=== PATIENT | female | born 1955 | race Caucasian/White ===

== ENCOUNTER 2016-11-16 11:27 | Inpatient (IN) | payer MEDICARE ==
[~2016-11-16] VITALS: Ht 160 cm; Wt 53.3 kg
[~2016-11-16 11:27] MED LIST: ASPI-535 PO; BACL20TA PO; BUPR-34 PO; ENAL1TAB31 PO; ESTR1TAB23 PO; FENT100D2; FLUO20CA38 PO; LEVE-5 PO; LYRI25 PO; METO50TA16 PO; TRAZ50TA18 PO; XOP15INH INH
[2016-11-16] MEDS ORDERED: BACL20TA PO (12:17)
[2016-11-16] MEDS ORDERED: TRAZ150T65 PO (12:18)
[2016-11-16] MEDS ORDERED: CEPH500C PO (12:19)
[2016-11-16] MEDS ORDERED: MAXZ25 PO (12:21)
[2016-11-16] MEDS ORDERED: CLON-379 PO (12:22)
[2016-11-16] MEDS ORDERED: ASPIRIN 325 MG TAB PO STA (12:26)
[2016-11-16] MEDS ORDERED: SOD CHLORIDE 0.9% 1,000 ML IV STA (12:26)
--- NOTE | 2016-11-16 12:35 | ERA ---
ER Documentation Chief Complaint Date/Time DATE: 11/16/16 TIME: 12:30 Chief Complaint ABD PAIN , PAIN INF PUMP NOT WORKING , SOB , TOOTH PAIN HPI This is 61-year-old female with a history of fibromyalgia, seizures and syringomyelia. She has a implanted pain pump that stopped working 4 days ago. The patient says she was in her primary care doctor's office Dr. Hicks,, 45 minutes ago, when she began getting disoriented and confused and using the incorrect words and she was speaking. She also stated her right arm and leg went numb, but currently is much improved and only her hand and foot are slightly tingly. No weakness. No slurred speech no seizure. Her caregiver is here at the bedside and states that the patient's mental status has been gradually declining over the past couple of days. She states she has noticed that she has been using inappropriate words in place of the correct words. Patient was sent here from the office. She is currently has a tooth infection she is receiving antibiotics for in order to clear this up first before they manipulate the pain pump ROS All systems reviewed and are negative except as per history of present illness. Medications Home Meds Reported Medications Clonidine Hcl* (Clonidine Hcl*) 0.1 Mg Tab, 0.1 MG PO Q4H Y for ELEVATED BLOOD PRESSURE, TAB 11/16/16 Triamterene/Hctz* (Maxzide (37.5-25)*) 1 Each Tablet, 1 EACH PO DAILY, #30 TAB 11/16/16 Cephalexin* (Cephalexin*) 500 Mg Capsule, 500 MG PO Q6, #28 CAP STARTED 11-13-16 FOR 8 DAYS 11/16/16 Trazodone Hcl* (Trazodone Hcl*) 150 Mg Tablet, 150 MG PO QHS, #30 TAB 11/16/16 Baclofen* (Baclofen*) 20 Mg Tablet, 100 MG PO QID, TAB 11/16/16 Fluoxetine Hcl* (Prozac*) 20 Mg Capsule, 20 MG PO BID, CAP 10/29/14 Levalbuterol* (Xopenex* HFA) 15 Gm Inha, 2 PUFFS INH QID Y for WHEEZING AND SOB , EA 10/29/14 Aspirin Ec (Aspir 81) 81 Mg Tablet.dr, 81 MG PO DAILY, TAB 10/29/14 Levetiracetam* (Keppra*) 500 Mg Tablet, 500 MG PO BID, TAB 10/29/14 Metoprolol Succinate* (Toprol XL*) 50 Mg Tab.er.24h, 50 MG PO DAILY, TAB 10/29/14 Bupropion Hcl* (Wellbutrin SR*) 150 Mg Tablet.sa, 150 MG PO BID 09/19/12 Estradiol* (Estrace*) 1 Mg Tablet, 1 MG PO DAILY 09/19/12 Pregabalin* (Lyrica*) 25 Mg Capsule, 25 MG PO TID 09/19/12 Discontinued Reported Medications Fentanyl Citrate/Pf (Fentanyl 0.05 Mg/Ml Syringe) 50 Mcg/Ml Disp.syrin, 30 MG .ROUTE 02/08/16 Enalapril-Hydrochlorothiazide (Vaseretic) 10-25 Mg Tablet, 1 TAB PO DAILY, TAB 10/29/14 Baclofen* (Baclofen*) 20 Mg Tablet, 20 MG PO QID 09/19/12 Discontinued Scripts Trazodone Hcl* (Trazodone Hcl*) 50 Mg Tablet, 25 MG PO HS Y for INSOMNIA, #1 TAB Prov:COLT MUNOZ MD 02/20/15 Allergies Allergies: Coded Allergies: Penicillins (Verified Allergy, Unknown, 11/16/16) rashes adhesive tape (Verified Allergy, Unknown, 11/16/16) rashes iodine (Verified Allergy, Unknown, 11/16/16) latex (Verified Allergy, Unknown, 11/16/16) rashes PMhx/Soc History of Surgery: Yes (hysterectomy, C5-C6 fusion, implantation spinal infusion pump) Anesthesia Reaction: No Hx Neurological Disorder: Yes (Seizures, fibromyalgia, syriangomyelia) Hx Respiratory Disorders: Yes (COPD) Hx Cardiac Disorders: No Hx Psychiatric Problems: Yes (depression) Hx Miscellaneous Medical Probl: Yes (HTN) Hx Alcohol Use: No Hx Substance Use: No Hx Tobacco Use: Yes Smoking Status: Current every day smoker FmHx Family History: No coronary disease Physical Exam Vitals Vital Signs Date Time Temp Pulse Resp B/P Pulse Ox O2 Delivery O2 Flow Rate FiO2 11/16/16 13:53 98.2 65 16 141/84 99 Nasal Cannula 3.0 11/16/16 13:00 Nasal Cannula 3 11/16/16 11:41 98.2 89 18 146/76 99 Physical Exam Const: Well-developed, well-nourished Head: Atraumatic, normocephalic Eyes: Normal Conjunctiva, PERRLA, EOMI, normal sclera, no nystagmus ENT: Normal External Ears, Nose and Mouth, moist mucus membranes. Neck: Full range of motion. No meningismus, no lymphadenopathy. Resp: Clear to auscultation bilaterally, no wheezing, rhonchi, rales Cardio: Regular rate and rhythm, no murmurs, S1 S2 present Abd: Soft, non tender x 4, non distended. Normal bowel sounds, no guarding or rebound, no pulsitile abdominal masses or bruits Skin: No petechiae or rashes, no ecchymosis , no maculopapular rash Back: No midline or flank tenderness Ext: No cyanosis, or edema, FROM x 4, normal inspection, neurovascularly intact x 4 Neur: Awake and alert, STR 4-5/5 x 4, sensation intact is chronically decreased in the left leg. She says her right hand and right foot are slightly tingly, t Psych: Normal Mood and Affect Result Diagram: 11/16/16 1235 11/16/16 1235 Results 24 hrs Laboratory Tests Test 11/16/16 12:35 Activated Partial Thromboplast Time 30.3Sec Alanine Aminotransferase (ALT/SGPT) 30IU/L Albumin 4.4g/dl Albumin/Globulin Ratio 1.37 Alkaline Phosphatase 65IU/L Anion Gap 14 Aspartate Amino Transf (AST/SGOT) 35IU/L Basophils # 0.010^3/ul Basophils % 0.3% Blood Urea Nitrogen 25mg/dl Calcium Level 9.8mg/dl Carbon Dioxide Level 33mmol/L Chloride Level 99mmol/L Creatinine 0.98mg/dl Direct Bilirubin 0.00mg/dl Eosinophils # 0.010^3/ul Eosinophils % 0.6% Globulin 3.20g/dl Glucose Level 112mg/dl Hematocrit 39.9% Hemoglobin 13.6g/dl INR International Normalized Ratio 0.91 Indirect Bilirubin 0.4mg/dl Lymphocytes # 1.010^3/ul Lymphocytes % 20.1% Mean Corpuscular Hemoglobin 33.0pg Mean Corpuscular Hemoglobin Concent 34.2g/dl Mean Corpuscular Volume 96.5fl Mean Platelet Volume 7.9fl Monocytes # 0.310^3/ul Monocytes % 5.3% Neutrophils # 3.810^3/ul Neutrophils % 73.7% Nucleated Red Blood Cells # 0.010^3/ul Nucleated Red Blood Cells % 0.0/100WBC Platelet Count 70192^3/UL Potassium Level 3.7mmol/L Prothrombin Time 12.2Sec Prothrombin Time Ratio 1.0 Red Blood Count 4.1410^6/ul Red Cell Distribution Width 12.1% Sodium Level 142mmol/L Total Bilirubin 0.4mg/dl Total Protein 7.6g/dl Troponin I < 0.010ng/ml White Blood Count 5.210^3/ul Current Medications Medications (Trade) Dose Ordered Sig/Cinda Route PRN Reason Start Time Stop Time Status Last Admin Dose Admin Sodium Chloride (NS) 1,000 ml @ 1,000 mls/hr Q1H STAT IV 11/16/16 12:26 11/16/16 13:25 DC 11/16/16 12:38 Aspirin (Aspirin) 325 mg ONCE STAT PO 11/16/16 12:26 11/16/16 12:29 DC 11/16/16 12:38 Procedures/MDM The patient is not a TPA candidate because the symptoms are markedly improved even though the symptoms began 45 minutes ago PROCEDURE: CT Brain without contrast. CLINICAL INDICATION: Stroke, weakness TECHNIQUE: Routine CT scan of the brain was performed on a high resolution multi detector scanner without intravenous contrast. One or more of the following dose reduction techniques were used: Automated exposure control; Adjustment of the mA and/or kV according to patient size; Use of iterative reconstruction technique. CTDI = 44 mGy. DLP = 630 mGy-cm. COMPARISON: No prior relevant examinations are available for comparison. FINDINGS: Hemorrhage: No evidence of intracranial hemorrhage. Acute ischemic changes: No evidence of acute ischemic changes. Mass effect/Midline shift: None. Parenchymal volume: Mild central parenchymal volume loss is evident. Ventricular system: Concordant with parenchymal volume. Chronic changes: Mild chronic-appearing microvascular ischemic changes of the supratentorial white matter. Atherosclerotic calcifications of the cavernous portions of both internal carotid arteries are present. Extracranial soft tissues: Unremarkable. Calvarium: No fractures. Paranasal sinuses: Visualized paranasal sinuses are clear. Mastoid air cells: Visualized mastoid air cells are clear. IMPRESSION: No acute intracranial abnormalities. Mild chronic-appearing microvascular ischemic changes of the supratentorial white matter. MRI of the brain may be useful for further evaluation. Results were discussed with Nurse Lauro by telephone at 1311 hours on [address] Carlos Montoya RPTAT: AADD .Carlos Montoya MD, MD Date Time Electronically viewed and signed by .Carlos Montoya MD, MD on 11/16/2016 13:14 .B/ CC: LAUREN STANTON DO PROCEDURE: XR Chest. CLINICAL INDICATION: Stroke-like symptoms, shortness of breath TECHNIQUE: A single AP view of the chest was obtained. COMPARISON: Chest CT dated 02/09/2016 FINDINGS: The lungs are hyperinflated with coarsening of the interstitial markings and increased lucency of the upper lung zones. No focal airspace opacification, pleural effusion or pneumothorax is seen. The cardiomediastinal silhouette is within normal limits for size. Calcifications are seen within the aortic arch. The osseous structures are unremarkable. IMPRESSION: 1. Emphysematous changes of the lungs. 2. Aortic atherosclerosis. RPTAT: HH .Aixa Douglass MD, MD Date Time Electronically viewed and signed by .Aixa Douglass MD, MD on 11/16/2016 12 :55 .G/ CC: LAUREN STANTON DO manager monitoring demonstrates normal sinus rhythm. No A. fib Patient likely had slight CVA or likely a TIA as her symptoms are progressively improving. Patient's neurologic symptoms are concerning for acute TIA/stroke, infectious, or metabolic cause and will require inpatient workup and continuous monitoring. Further w/u for will be deferred to the inpatient team. Neuro Critical Care: Critical Care Time: 30 minutes Treatments/Evaluations: Continuous neurologic and cardiovascular monitoring for deterioration of neurologic function and complications, while obtaining immediate neurologic imaging. Considerations made for TPA and invasive therapy with discussions with family. TPA Criteria Assessment: Patient is not a TPA candidate because: Symptoms markedly improved and are continuing to improve Last known normal > 3 hours Time Onset Unkown Minimal or rapidly improving symptoms Bleeding Diathesis Ct shows > 1/[address] shows ICH BP >185/110 even with treatment Aggressive BP therapy required i.e. Nicardipine gtt Hyper or Hypoglycemia < 50 or > 400 mg/dl Seizure at onset Stroke or Head injury < 3 months LP < 24 hours Major Surgery < 14 days Brain Tumor, AVM, Aneurysm GI/ bleed < 21 days Arterial Puncture < 7 days Caution NIHSS > 22 For Symptoms 3-4.5 hrs Age > 80 NIHSS > 25 Any Anticoagulant Use History of CVA and DM Accepting Care Team: Current data and ongoing care discussed. Time: Time of admission Primary Provider: Mieky and Consulting: [employer]LE[employer] Outstanding Data: none Departure Diagnosis: Primary Impression: CVA (cerebral vascular accident) Qualified Code: I63.9 - Cerebrovascular accident (CVA), unspecified mechanism Condition: Stable LAUREN STANTON DO Nov 16, 2016 12:35
--- NOTE | 2016-11-16 12:55 | RADRPT ---
PROCEDURE: XR Chest. CLINICAL INDICATION: Stroke-like symptoms, shortness of breath TECHNIQUE: A single AP view of the chest was obtained. COMPARISON: Chest CT dated 02/09/2016 FINDINGS: The lungs are hyperinflated with coarsening of the interstitial markings and increased lucency of th e upper lung zones. No focal airspace opacification, pleural effusion or pneumothorax is seen. The cardiomediastinal silhouette is within normal limits for size. Calcifications are seen within the a ortic arch. The osseous structures are unremarkable. IMPRESSION: 1. Emphysematous changes of the lungs. 2. Aortic atherosclerosis. RPTAT: HH .Aixa Douglass MD, MD Date Time Electronically viewed and signed by .Aixa Douglass MD, on 11/16/2016 12:55 .G/
[2016-11-16 12:59] LABS: BASOPHILS % 0.3 % (0.0-2.0); EOSINOPHILS % 0.6 % (0.0-7.0); HEMATOCRIT 39.9 % (37.0-47.0); HEMOGLOBIN 13.6 g/dl (12.0-16.0); LYMPHOCYTES % 20.1 % (15.0-51.0); MEAN CORPUSCULAR HGB CONC 34.2 g/dl (32.0-37.0); MEAN CORPUSCULAR VOLUME 96.5 fl (82.0-101.0); MEAN PLATELET VOLUME 7.9 fl (7.4-10.4); MONOCYTE # 0.3 10^3/ul (0.3-0.9); MONOCYTES % 5.3 % (0.0-11.0); NEUTROPHIL # 3.8 10^3/ul (1.6-7.5); NEUTROPHILS % 73.7 % (39.0-77.0); PLATELET COUNT 130 10^3/UL (140-440); RED BLOOD COUNT 4.14 10^6/ul (4.20-5.40); RED CELL DISTRIBUTION WIDTH 12.1 % (11.5-14.5); UNCORRECTED WBC 5.2 10^3/ul (4.8-10.8); WHITE BLOOD COUNT 5.2 10^3/ul (4.8-10.8)
[2016-11-16 13:05] LABS: INR 0.91; PROTIME 12.2 Sec (12.2-14.2)
[2016-11-16 13:06] LABS: PARTIAL THROMBOPLASTIN TIME 30.3 Sec (25.0-35.0)
[2016-11-16 13:10] LABS: CONDITION 1
--- NOTE | 2016-11-16 13:14 | RADRPT ---
PROCEDURE: CT Brain without contrast. CLINICAL INDICATION: Stroke, weakness TECHNIQUE: Routine CT scan of the brain was performed on a high resolution multi detector scanner without intravenous contrast. One or more of the following dose reduction techniques were used: Auto mated exposure control; Adjustment of the mA and/or kV according to patient size; Use of iterative r econstruction technique. CTDI = 44 mGy. DLP = 630 mGy-cm. COMPARISON: No prior relevant examinations are available for comparison. FINDINGS: Hemorrhage: No evidence of intracranial hemorrhage. Acute ischemic changes: No evidence of acute ischemic changes. Mass effect/Midline shift: None. Parenchymal volume: Mild central parenchymal volume loss is evident. Ventricular system: Concordant with parenchymal volume. Chronic changes: Mild chronic-appearing microvascular ischemic changes of the supratentorial white m atter. Atherosclerotic calcifications of the cavernous portions of both internal carotid arteries ar e present. Extracranial soft tissues: Unremarkable. Calvarium: No fractures. Paranasal sinuses: Visualized paranasal sinuses are clear. Mastoid air cells: Visualized mastoid air cells are clear. IMPRESSION: No acute intracranial abnormalities. Mild chronic-appearing microvascular ischemic changes of the supratentorial white matter. MRI of the brain may be useful for further evaluation. Results were discussed with Nurse Lauro by telephone at 1311 hours on 11/16/[address] Carlos ewing RPTAT: AADD .Carlos Montoya MD, MD Date Time Electronically viewed and signed by .Carlos Montoya MD, MD on 11/16/2016 13:14 .B/
[2016-11-16 13:15] LABS: ALBUMIN 4.4 g/dl (3.3-4.9)
[2016-11-16 13:16] LABS: CHLORIDE 99 mmol/L (97-110); POTASSIUM 3.7 mmol/L (3.5-5.1); SODIUM 142 mmol/L (135-144)
[2016-11-16 13:18] LABS: CREATININE 0.98 mg/dl (0.44-1.00)
[2016-11-16 13:19] LABS: ALANINE AMINOTRANSFERASE 30 IU/L (13-69); ALBUMIN/GLOBULIN RATIO 1.37; ALKALINE PHOSPHATASE 65 IU/L (42-121); ANION GAP 14 (8-16); ASPARTATE AMINO TRANSFERASE 35 IU/L (15-46); BILIRUBIN,INDIRECT 0.4 mg/dl (0-1.1); BILIRUBIN,TOTAL 0.4 mg/dl (0.2-1.3); BLOOD UREA NITROGEN 25 mg/dl (7-20); CALCIUM 9.8 mg/dl (8.4-10.2); CARBON DIOXIDE 33 mmol/L (21-31); GLUCOSE 112 mg/dl (70-220); TOTAL PROTEIN 7.6 g/dl (6.1-8.1)
[2016-11-16 13:58] LABS: TROPONIN-I < 0.010 ng/ml (0.00-0.12)
[2016-11-16] MEDS ORDERED: SOD CHLORIDE 0.9% 1,000 ML IV SCH (18:02)
[2016-11-16] MEDS ORDERED: ACETAMINOPHEN 325 MG TAB PO PRN ×2 (18:30→22:30)
[2016-11-16] MEDS ORDERED: ONDANSETRON 4 MG INJ IV PRN (18:30)
[2016-11-16] MEDS ORDERED: ONDANSETRON 4 MG INJ IV STA (19:08)
[2016-11-16] MEDS ORDERED: HYDROmorphONE 1 MG/ML SYG IV STA (19:08)
[2016-11-16 19:59] VITALS: TEMP 98.7
[2016-11-16 20:39] VITALS: BP 163/94; RESP 19
[2016-11-16 21:00] VITALS: Ht 160 cm; Wt 53.3 kg
[2016-11-16] MEDS ORDERED: LEVALBUTEROL (HFA) 15 GM INHALER INH PRN (22:00)
[2016-11-16] MEDS ORDERED: LORAZEPAM 2 MG INJ IV PRN (22:30)
[2016-11-16] MEDS ORDERED: hydrALAzine 20 MG INJ IV PRN (22:30)
[2016-11-17] VITALS (13 sets, daily range): BP systolic 116–152; BP diastolic 72–99; PULSE 56–82; RESP 18–20
[2016-11-17] MEDS: CEPHALEXIN 500 MG CAP PO SCH ×4 (01:03→17:54)
[2016-11-17] MEDS: traZODone 50 MG TAB PO SCH ×2 (02:56→21:40)
[2016-11-17] MEDS: BUPROPION (SR) 150 MG TAB PO SCH ×3 (02:57→21:00)
[2016-11-17] MEDS: PREGABALIN 25 MG CAP PO SCH ×4 (03:17→21:40)
[2016-11-17] MEDS: BACLOFEN 10 MG TAB PO SCH ×5 (03:17→21:40)
[2016-11-17] MEDS: FLUOXETINE 20 MG CAP PO SCH ×3 (03:18→21:40)
[2016-11-17] MEDS: LEVETIRACETAM 500 MG TAB PO SCH ×3 (03:23→21:40)
[2016-11-17 07:07] LABS: CHOL/HDL RATIO 3.1 RATIO
[2016-11-17 07:36] LABS: THYROID STIMULATING HORMONE 0.84 MIU/L (0.465-4.680)
[2016-11-17] MEDS: ASPIRIN (EC) 81 MG TAB PO SCH (08:34)
[2016-11-17] MEDS: TRIAMTERENE/HCTZ (37.5/25) TAB PO SCH (08:34)
[2016-11-17] MEDS: METOPROLOL (XL) 50 MG TAB PO SCH (08:35)
[2016-11-17] MEDS ORDERED: BACLOFEN 10 MG TAB PO SCH (09:00)
[2016-11-17] MEDS ORDERED: ASPIRIN 81 MG TAB PO SCH (09:00)
[2016-11-17] MEDS ORDERED: morphine 4 MG/ML VIAL IV PRN (12:00)
--- NOTE | 2016-11-17 14:37 | HP ---
Date/Time of Note Date/Time of Note DATE: 11/17/16 TIME: 14:13 Assessment/Plan Lines/Catheters IV Catheter Type (from Nrsg): Peripheral IV Assessment/Plan Assessment/Plan 1.Cerebrovascular Accident- patient was not a TPA candidate as her symptoms improved in ER after 45 mins. 2. COPD 3. Smoker - Smoking cessation strongly advised 4. SP Breast implant 5. SP Infusion pump placement for pain meds- non functional at present. RN to fu with pain meds the patient was on. PLAN ; Admit to tele Home meds resumed Smoking cessation PT/OT Evaluation Neurology Consult- notified GI consult - notified DW Dr Shah HPI/ROS Admit Date/Time Admit Date/Time Nov 16, 2016 at 18:03 ROS ABD PAIN , PAIN INF PUMP NOT WORKING , SOB , TOOTH PAIN HPI This is 61-year-old female with a history of fibromyalgia, seizures and syringomyelia. She has a implanted pain pump that stopped working 4 days ago. The patient says she was in her primary care doctor's office Dr. Hicks,, 45 minutes ago, when she began getting disoriented and confused and using the incorrect words and she was speaking. She also stated her right arm and leg went numb, but currently is much improved and only her hand and foot are slightly tingly. No weakness. No slurred speech no seizure. Her caregiver is here at the bedside and states that the patient's mental status has been gradually declining over the past couple of days. She states she has noticed that she has been using inappropriate words in place of the correct words. Patient was sent here from the office. She is currently has a tooth infection she is receiving antibiotics for in order to clear this up first before they manipulate the pain pump ROS All systems reviewed and are negative except as per history of present illness. Medications Home Meds Reported Medications Clonidine Hcl* (Clonidine Hcl*) 0.1 Mg Tab, 0.1 MG PO Q4H Y for ELEVATED BLOOD PRESSURE, TAB 11/16/16 Triamterene/Hctz* (Maxzide (37.5-25)*) 1 Each Tablet, 1 EACH PO DAILY, #30 TAB 11/16/16 Cephalexin* (Cephalexin*) 500 Mg Capsule, 500 MG PO Q6, #28 CAP STARTED 11-13-16 FOR 8 DAYS 11/16/16 Trazodone Hcl* (Trazodone Hcl*) 150 Mg Tablet, 150 MG PO QHS, #30 TAB 11/16/16 Baclofen* (Baclofen*) 20 Mg Tablet, 100 MG PO QID, TAB 11/16/16 Fluoxetine Hcl* (Prozac*) 20 Mg Capsule, 20 MG PO BID, CAP 10/29/14 Levalbuterol* (Xopenex* HFA) 15 Gm Inha, 2 PUFFS INH QID Y for WHEEZING AND SOB , EA 10/29/14 Aspirin Ec (Aspir 81) 81 Mg Tablet.dr, 81 MG PO DAILY, TAB 10/29/14 Levetiracetam* (Keppra*) 500 Mg Tablet, 500 MG PO BID, TAB 10/29/14 Metoprolol Succinate* (Toprol XL*) 50 Mg Tab.er.24h, 50 MG PO DAILY, TAB 10/29/14 Bupropion Hcl* (Wellbutrin SR*) 150 Mg Tablet.sa, 150 MG PO BID 09/19/12 Estradiol* (Estrace*) 1 Mg Tablet, 1 MG PO DAILY 09/19/12 Pregabalin* (Lyrica*) 25 Mg Capsule, 25 MG PO TID 09/19/12 Discontinued Reported Medications Fentanyl Citrate/Pf (Fentanyl 0.05 Mg/Ml Syringe) 50 Mcg/Ml Disp.syrin, 30 MG .ROUTE 02/08/16 Enalapril-Hydrochlorothiazide (Vaseretic) 10-25 Mg Tablet, 1 TAB PO DAILY, TAB 10/29/14 Baclofen* (Baclofen*) 20 Mg Tablet, 20 MG PO QID 09/19/12 Discontinued Scripts Trazodone Hcl* (Trazodone Hcl*) 50 Mg Tablet, 25 MG PO HS Y for INSOMNIA, #1 TAB Prov:COLT MUNOZ MD 02/20/15 Allergies Allergies: Coded Allergies: Penicillins (Verified Allergy, Unknown, 11/16/16) rashes adhesive tape (Verified Allergy, Unknown, 11/16/16) rashes iodine (Verified Allergy, Unknown, 11/16/16) latex (Verified Allergy, Unknown, 11/16/16) rashes Eyes: no complaints ENT: no complaints Respiratory: no complaints Cardiovascular: no complaints Gastrointestinal: pain Genitourinary: no complaints Musculoskeletal: no complaints Skin: no complaints Neurologic: no complaints Endocrine: no complaints PMH/Family/Social Past Medical History PMhx/Soc History of Surgery: Yes (hysterectomy, C5-C6 fusion, implantation spinal infusion pump) Anesthesia Reaction: No Hx Neurological Disorder: Yes (Seizures, fibromyalgia, syriangomyelia) Hx Respiratory Disorders: Yes (COPD) Hx Cardiac Disorders: No Hx Psychiatric Problems: Yes (depression) Hx Miscellaneous Medical Probl: Yes (HTN) Hx Alcohol Use: No Hx Substance Use: No Hx Tobacco Use: Yes Smoking Status: Current every day smoker FmHx Family History: No coronary disease Past Surgical History Past Surgical Hx: no surgical history Social History Smoking Status: Current every day smoker Exam/Review of Systems Vital Signs Vitals Vital Signs Date Time Temp Pulse Resp B/P Pulse Ox O2 Delivery O2 Flow Rate FiO2 11/17/16 12:24 75 11/17/16 12:10 98.2 19 152/99 96 11/17/16 01:00 Nasal Cannula 2.0 Intake and Output 11/16/16 11/16/16 11/17/16 15:00 23:00 07:00 Intake Total 500 ml Balance 500 ml Exam Constitutional: alert, well developed Psych: nl mood/affect Eyes: EOMI, PERRL, nl sclera ENMT: nl external ears & nose Neck: non-tender Respiratory: clear to auscultation Cardiovascular: nl pulses Gastrointestinal: non-tender, soft Musculoskeletal: nl extremities to inspection Extremities: normal pulses Neurological: nl speech, other (sensation intact is chronically decreased in the left leg. ) Skin: nl turgor Lymph: nontender Labs Result Diagram: 11/16/16 1235 11/16/16 1235 Medications Medications Current Medications Aspirin (Halfprin) 81 mg DAILY PO Last administered on 11/17/16 08:34; Admin Dose 81 MG; Start 11/17/16 at 09:00 Bupropion HCl (Wellbutrin Sr) 150 mg BID PO ; Start 11/17/16 at 02:57 Cephalexin (Keflex) 500 mg Q6 PO Last administered on 11/17/16 12:29; Admin Dose 500 MG; Start 11/17/16 at 00:00 Fluoxetine HCl (Prozac) 20 mg BID PO Last administered on 11/17/16 08:35; Admin Dose 20 MG; Start 11/17/16 at 02:57 Levalbuterol (Xopenex Hfa) 1 puff QID PRN INH WHEEZING AND SOB; Start 11/16/16 at 22:00 Levetiracetam (Keppra) 500 mg BID PO Last administered on 11/17/16 08:35; Admin Dose 500 MG; Start 11/17/16 at 03:20 Metoprolol Succinate (Toprol Xl) 50 mg DAILY PO Last administered on 11/17/16 08:35; Admin Dose 50 MG; Start 11/17/16 at 09:00 Pregabalin (Lyrica) 25 mg TID PO Last administered on 11/17/16 12:28; Admin Dose 25 MG; Start 11/17/16 at 02:56 Trazodone HCl (Desyrel) 150 mg QHS PO ; Start 11/17/16 at 02:56 Triamterene/HCTZ (Maxzide-25) 1 tab DAILY PO Last administered on 11/17/16 08: 34; Admin Dose 1 TAB; Start 11/17/16 at 09:00 Acetaminophen (Tylenol Tab) 650 mg Q4H PRN PO PAIN AND OR ELEVATED TEMP; Start 11/16/16 at 22:30 Hydralazine HCl (Apresoline) 10 mg Q4H PRN IV FOR SYSTOLIC B/P ABOVE 160; Start 11/16/16 at 22:30 Lorazepam (Ativan) 0.5 mg Q6H PRN IV AGITATION; Start 11/16/16 at 22:30 Baclofen (Lioresal) 40 mg QID PO Last administered on 11/17/16 12:29; Admin Dose 40 MG; Start 11/17/16 at 02:57 Morphine Sulfate (morphine) 4 mg Q3H PRN IV PAIN Last administered on 12:29; Admin Dose 4 MG; Start 11/17/16 at 12:00 Procedures Procedures PROCEDURE: CT Brain without contrast. CLINICAL INDICATION: Stroke, weakness TECHNIQUE: Routine CT scan of the brain was performed on a high resolution multi detector scanner without intravenous contrast. One or more of the following dose reduction techniques were used: Automated exposure control; Adjustment of the mA and/or kV according to patient size; Use of iterative reconstruction technique. CTDI = 44 mGy. DLP = 630 mGy-cm. COMPARISON: No prior relevant examinations are available for comparison. FINDINGS: Hemorrhage: No evidence of intracranial hemorrhage. Acute ischemic changes: No evidence of acute ischemic changes. Mass effect/Midline shift: None. Parenchymal volume: Mild central parenchymal volume loss is evident. Ventricular system: Concordant with parenchymal volume. Chronic changes: Mild chronic-appearing microvascular ischemic changes of the supratentorial white matter. Atherosclerotic calcifications of the cavernous portions of both internal carotid arteries are present. Extracranial soft tissues: Unremarkable. Calvarium: No fractures. Paranasal sinuses: Visualized paranasal sinuses are clear. Mastoid air cells: Visualized mastoid air cells are clear. IMPRESSION: No acute intracranial abnormalities. Mild chronic-appearing microvascular ischemic changes of the supratentorial white matter. MRI of the brain may be useful for further evaluation. PROCEDURE: XR Chest. CLINICAL INDICATION: Stroke-like symptoms, shortness of breath TECHNIQUE: A single AP view of the chest was obtained. COMPARISON: Chest CT dated 02/09/2016 FINDINGS: The lungs are hyperinflated with coarsening of the interstitial markings and increased lucency of the upper lung zones. No focal airspace opacification, pleural effusion or pneumothorax is seen. The cardiomediastinal silhouette is within normal limits for size. Calcifications are seen within the aortic arch. The osseous structures are unremarkable. IMPRESSION: 1. Emphysematous changes of the lungs. 2. Aortic atherosclerosis. SARAI CHURCH Nov 17, 2016 14:24
[2016-11-17 17:40] LABS: BASOPHILS % 0.2 % (0.0-2.0); EOSINOPHILS % 0.4 % (0.0-7.0); HEMATOCRIT 42.5 % (37.0-47.0); HEMOGLOBIN 14.6 g/dl (12.0-16.0); LYMPHOCYTES % 14.2 % (15.0-51.0); MEAN CORPUSCULAR HEMOGLOBIN 33.2 pg (29.0-33.0); MEAN CORPUSCULAR HGB CONC 34.3 g/dl (32.0-37.0); MEAN CORPUSCULAR VOLUME 96.9 fl (82.0-101.0); MEAN PLATELET VOLUME 8.1 fl (7.4-10.4); MONOCYTE # 0.3 10^3/ul (0.3-0.9); MONOCYTES % 4.9 % (0.0-11.0); NEUTROPHIL # 5.6 10^3/ul (1.6-7.5); NEUTROPHILS % 80.3 % (39.0-77.0); PLATELET COUNT 147 10^3/UL (140-440); RED BLOOD COUNT 4.39 10^6/ul (4.20-5.40); RED CELL DISTRIBUTION WIDTH 12.1 % (11.5-14.5)
[2016-11-17 17:41] LABS: CONDITION 1
[2016-11-17 17:47] LABS: CREATININE 0.81 mg/dl (0.44-1.00)
[2016-11-17 17:48] LABS: CALCIUM 9.6 mg/dl (8.4-10.2)
--- NOTE | 2016-11-17 19:24 | RADRPT ---
PROCEDURE: CT brain without IV contrast. CLINICAL INDICATION: Hallucinations. TECHNIQUE: CT examination of the brain was performed on a 64-slice multidetector scanner. The pat ient was examined without IV contrast. Sagittal and coronal reformatted images were made. The imag es were reviewed on a PACS workstation. Radiation dose: Total CTDIvol: 44 mGY. Total DLP: 720 mGy-cm. COMPARISON: None available. FINDINGS: The ventricles and cerebral sulci are normal in size for this patient's age. The best/white matter differentiation is well preserved. There is no other abnormal intra-axial high, low density lesion, suggesting tumor, infarct , bleeding, av malformation or inflammatory mass. No subdural or epidural hematoma. There is calcified atherosclerosis of the intracranial internal c arotid arteries. The visualized paranasal sinuses and mastoid air cells are clear. The orbits are unremarkable. The calvarium is intact. No scalp abnormalities are seen. IMPRESSION: 1. Unremarkable CT brain without IV contrast. RPTAT: GG .Jong High MD, MD Date Time Electronically viewed and signed by .Jong High MD, on 11/17/2016 19:23 .Y/
--- NOTE | 2016-11-17 20:11 | SP ---
DATE OF PROCEDURE: 11/17/2016 INDICATION: A 61-year-old lady with history of seizures, stroke, currently on Keppra. DESCRIPTION OF PROCEDURE: Routine EEG was recorded on 11/17/2016. EEG recorded digitally. Fkcpm-[id number] and ktmam-ns-cti montages were recorded and reviewed. All impedances were measured and recorded. Cap electrodes were placed in accordance with International 10-20 system of electrode placement. Symmetrically distributed background activity of low to medium amplitude was seen throughout the recording ranging in frequency between 10 to 12 cycles per second. Photic stimulation produces no definite driving. By the end of the recording, patient's EEG showed about 10-15 second lasting episodes of relatively large amplitude, predominantly frontal delta activity of about 2 to 3 cycles per second. No definite epileptiform transients were seen. No signs of ongoing electrographic seizures or lateralized slowing. IMPRESSION: Abnormal study secondary to presence of frontal intermittent rhythmical delta activity which usually is seen in the context of toxic metabolic encephalopathy. I do not see any asymmetry of the activity to suggest structural abnormality, though correlation with imaging is reasonable. No definite epileptiform transients. Dictated By: DIRK RODRIGUEZ/CHEYENNE Conf#: [id number] DID#: [id number] MTDD
[2016-11-17] MEDS ORDERED: traMADol 50 MG TAB PO PRN (20:30)
[2016-11-17] MEDS ORDERED: FENTAnyl PATCH 75 MCG/HR TRANSDERM SCH (23:30)
[2016-11-18] VITALS (13 sets, daily range): BP systolic 128–158; BP diastolic 77–98; PULSE 66–85; RESP 16–20
[2016-11-18] MEDS: CEPHALEXIN 500 MG CAP PO SCH ×4 (00:51→17:53)
[2016-11-18 06:20] LABS: BASOPHILS % 0.4 % (0.0-2.0); EOSINOPHILS # 0.1 10^3/ul (0.0-0.5); HEMATOCRIT 40.6 % (37.0-47.0); HEMOGLOBIN 13.9 g/dl (12.0-16.0); LYMPHOCYTES # 2.1 10^3/ul (0.8-2.9); MEAN CORPUSCULAR HEMOGLOBIN 33.3 pg (29.0-33.0); MEAN CORPUSCULAR HGB CONC 34.2 g/dl (32.0-37.0); MEAN CORPUSCULAR VOLUME 97.4 fl (82.0-101.0); MONOCYTE # 0.6 10^3/ul (0.3-0.9); NEUTROPHIL # 5.2 10^3/ul (1.6-7.5); NEUTROPHILS % 65.6 % (39.0-77.0); PLATELET COUNT 130 10^3/UL (140-440); RED BLOOD COUNT 4.17 10^6/ul (4.20-5.40); RED CELL DISTRIBUTION WIDTH 12.2 % (11.5-14.5); UNCORRECTED WBC 7.9 10^3/ul (4.8-10.8); WHITE BLOOD COUNT 7.9 10^3/ul (4.8-10.8)
[2016-11-18 06:30] LABS: CONDITION 1
[2016-11-18 06:42] LABS: POTASSIUM 3.5 mmol/L (3.5-5.1)
[2016-11-18 06:45] LABS: CREATININE 0.98 mg/dl (0.44-1.00)
[2016-11-18 06:46] LABS: CALCIUM 9.7 mg/dl (8.4-10.2)
--- NOTE | 2016-11-18 08:28 | CONS ---
DATE OF ADMISSION: 11/16/2016 DATE OF CONSULTATION: TYPE OF CONSULTATION: Gastroenterology. REFERRING PHYSICIAN: Dannie Stinson MD HISTORY OF PRESENT ILLNESS: The patient is a 61-year-old female with a history of chronic pain, fib romyalgia, seizure disorder, was admitted to the hospital because of confusional state and abdominal pain. The pain is around left lower rib area, radiating to the back. No nausea, no vomiting. She has been losing weight. She states that her memory is not good. No GI bleeding, no chest pain or shortness of breath. She has got an implanted pump for her pain management and she ran out of the [facility]. REVIEW OF SYSTEMS: Negative. HOME MEDICATION: Reviewed. She is on: 1. Clonidine. 2. Maxzide. 3. Cefotaxime. 4. Trazodone. 5. Baclofen. 6. Prozac. 7. Bronchodilator. 8. Keppra. 9. Wellbutrin. 10. Metoprolol. ALLERGIES: 1. PENICILLIN. 2. LATEX. 3. IODINE. REVIEW OF SYSTEM: Negative. PAST MEDICAL HISTORY: Hysterectomy, fusion surgery C5-C6 in spinal infusion pump. History of seizur e disorder, fibromyalgia, syringomyelia, depression, hypertension. SOCIAL HISTORY: She is a smoker. No alcohol. PHYSICAL EXAMINATION GENERAL: Thin built, not in distress. VITAL SIGNS: Stable. HEENT: Unremarkable. NECK: Supple, no thyromegaly, no lymphadenopathy. CARDIOVASCULAR: No murmur, gallop or click. LUNGS: Clear. EXTREMITIES: No edema. CENTRAL NERVOUS SYSTEM: Grossly within normal limit. The patient had a CAT scan of the brain. There was no acute pathology. Chest CT showed emphysemato us changes in the lung. IMPRESSION: 1. Chronic abdominal pain. 2. Depression. 3. Fibromyalgia. 4. Hypertension. 5. Emphysema. 6. Chronic pain syndrome. PLAN: Pain management. If the abdominal pain is persistent and patient never had a colonoscopy in t he last 10 years, then she will need one as an outpatient. We may do a CAT scan of the abdomen and pelvis, both with abdominal pain and also for the weight loss. Dictated By: THIAGO BECERRA/CHEYENNE Conf#: [id number] DID#: [id number] CC: DANNIE STINSON MD;*EndCC*
[2016-11-18] MEDS: TRIAMTERENE/HCTZ (37.5/25) TAB PO SCH (09:00)
[2016-11-18] MEDS: PREGABALIN 25 MG CAP PO SCH ×3 (10:08→20:52)
[2016-11-18] MEDS: NICOTINE (21 MG/24 HR) PATCH TRANSDERM SCH (10:08)
[2016-11-18] MEDS: LEVETIRACETAM 500 MG TAB PO SCH (10:09)
[2016-11-18] MEDS: BUPROPION (SR) 150 MG TAB PO SCH ×2 (10:10→20:51)
[2016-11-18] MEDS: METOPROLOL (XL) 50 MG TAB PO SCH (10:10)
[2016-11-18] MEDS: FLUOXETINE 20 MG CAP PO SCH ×2 (10:10→20:51)
[2016-11-18] MEDS: ASPIRIN (EC) 81 MG TAB PO SCH (10:13)
[2016-11-18] MEDS: BACLOFEN 10 MG TAB PO SCH ×4 (10:21→20:51)
--- NOTE | 2016-11-18 11:54 | CONS ---
Date/Time of Note Date/Time of Note DATE: 11/18/16 TIME: 11:53 Assessment/Plan Assessment/Plan Additional Assessment/Plan IMPRESSION: 1. Chronic abdominal pain.better. 2. Depression. 3. Fibromyalgia. 4. Hypertension. 5. Emphysema. 6. Chronic pain syndrome. Plan pt.wants to go home will follow as op Consultation Date/Type/Reason Admit Date/Time Nov 16, 2016 at 18:03 Initial Consult Date 24 HR Interval Summary Constitutional: improved, no complaints Exam/Review of Systems Vital Signs Vitals Vital Signs Date Time Temp Pulse Resp B/P Pulse Ox O2 Delivery O2 Flow Rate FiO2 11/18/16 11:23 98.0 76 18 135/85 97 11/17/16 20:02 Nasal Cannula 2.0 Intake and Output 11/17/16 11/17/16 11/18/16 15:00 23:00 07:00 Intake Total 480 ml Balance 480 ml Exam Constitutional: alert, oriented, well developed Psych: nl mood/affect, no complaints Head: atraumatic, normocephalic Eyes: EOMI, PERRL, nl conjunctiva, nl lids, nl sclera ENMT: nl external ears & nose, nl lips & teeth, nl nasal mucosa & septum Neck: non-tender, supple Respiratory: clear to auscultation, normal air movement Cardiovascular: nl pulses, regular rate and rhythm Gastrointestinal: nl liver, spleen, non-tender, soft Musculoskeletal: nl extremities to inspection, nl gait and stance Extremities: normal pulses Neurological: SUPERVISOR TUNNEL HEADING II-XII intact, nl mental status, nl speech, nl strength Skin: nl turgor, No rash or lesions Lymph: nl lymph nodes Results Result Diagram: 11/18/16 0550 11/18/16 0500 Results 24 hrs Laboratory Tests Test 11/17/16 17:18 11/18/16 05:00 11/18/16 05:50 Anion Gap 16 16 Basophils # 0.0 0.0 Basophils % 0.2 0.4 Blood Urea Nitrogen 15 # 18 Calcium Level 9.6 9.7 Carbon Dioxide Level 28 31 Chloride Level 106 107 Creatinine 0.81 0.98 Eosinophils # 0.0 0.1 Eosinophils % 0.4 1.0 Glucose Level 96 93 Hematocrit 42.5 40.6 Hemoglobin 14.6 13.9 Lymphocytes # 1.0 2.1 Lymphocytes % 14.2 L 26.0 Mean Corpuscular Hemoglobin 33.2 H 33.3 H Mean Corpuscular Hemoglobin Concent 34.3 34.2 Mean Corpuscular Volume 96.9 97.4 Mean Platelet Volume 8.1 8.0 Monocytes # 0.3 0.6 Monocytes % 4.9 7.0 Neutrophils # 5.6 5.2 Neutrophils % 80.3 H 65.6 Nucleated Red Blood Cells # 0.0 0.0 Nucleated Red Blood Cells % 0.0 0.0 Platelet Count 147 130 L Potassium Level 4.0 3.5 Red Blood Count 4.39 4.17 L Red Cell Distribution Width 12.1 12.2 Sodium Level 146 H 150 H White Blood Count 7.0 # 7.9 Medications Medications Current Medications Aspirin (Halfprin) 81 mg DAILY PO Last administered on 11/18/16 10:13; Admin Dose 81 MG; Start 11/17/16 at 09:00 Bupropion HCl (Wellbutrin Sr) 150 mg BID PO Last administered on 11/18/16 10: 10; Admin Dose 150 MG; Start 11/17/16 at 02:57 Cephalexin (Keflex) 500 mg Q6 PO Last administered on 11/18/16 06:05; Admin Dose 500 MG; Start 11/17/16 at 00:00 Fluoxetine HCl (Prozac) 20 mg BID PO Last administered on 11/18/16 10:10; Admin Dose 20 MG; Start 11/17/16 at 02:57 Levalbuterol (Xopenex Hfa) 1 puff QID PRN INH WHEEZING AND SOB; Start 11/16/16 at 22:00 Levetiracetam (Keppra) 500 mg BID PO Last administered on 11/18/16 10:09; Admin Dose 500 MG; Start 11/17/16 at 03:20 Metoprolol Succinate (Toprol Xl) 50 mg DAILY PO Last administered on 11/18/16 10:10; Admin Dose 50 MG; Start 11/17/16 at 09:00 Pregabalin (Lyrica) 25 mg TID PO Last administered on 11/18/16 10:08; Admin Dose 25 MG; Start 11/17/16 at 02:56 Trazodone HCl (Desyrel) 150 mg QHS PO Last administered on 11/17/16 21:40; Admin Dose 150 MG; Start 11/17/16 at 02:56 Triamterene/HCTZ (Maxzide-25) 1 tab DAILY PO Last administered on 11/18/16 09: 00; Admin Dose 1 TAB; Start 11/17/16 at 09:00 Acetaminophen (Tylenol Tab) 650 mg Q4H PRN PO PAIN AND OR ELEVATED TEMP; Start 11/16/16 at 22:30 Hydralazine HCl (Apresoline) 10 mg Q4H PRN IV FOR SYSTOLIC B/P ABOVE 160; Start 11/16/16 at 22:30 Lorazepam (Ativan) 0.5 mg Q6H PRN IV AGITATION; Start 11/16/16 at 22:30 Baclofen (Lioresal) 40 mg QID PO Last administered on 11/18/16 10:21; Admin Dose 40 MG; Start 11/17/16 at 02:57 Nicotine (Nicoderm 21 Mg/ 24hr) 1 patch DAILY TRANSDERM Last administered on 10:08; Admin Dose 1 PATCH; Start 11/18/16 at 09:00 Tramadol HCl (Ultram) 50 mg Q6H PRN PO PAIN; Start 11/17/16 at 20:30 Fentanyl (Duragesic 100 Mcg/Hr Patch) 1 patch Q3D TRANSDERM Last administered on 11/18/16 01:12; Admin Dose 1 PATCH; Start 11/18/16 at 00:00 THIAGO ALMEIDA MD Nov 18, 2016 11:54
--- NOTE | 2016-11-18 14:46 | CONS ---
DATE OF ADMISSION: 11/16/2016 DATE OF CONSULTATION: 11/18/2016 TYPE OF CONSULTATION: Neurology. Thank you, Dr. Grissom, and Chester Moore, nurse practitioner, for your kind referral for evaluation of possible TIA. 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 The patient gives a history of possible cardiopulmonary arrest or prolonged seizure, it is not clear, about a year ago. Hence, she was put on Keppra 500 twice daily at that time. She denies any generalized seizures since, but she was told that she had episodes of decreased responsiveness and zones out. She was in her primary doctor's office when she became confused and developed speech difficulties, using incorrect words. She stated the morning of the same day she developed numbness in the right big toe. She said that she had full recollection of the event in the doctor's office, or at least she thinks she has full recollection, though she has poor memory since her cardiopulmonary arrest 1 year ago. The home medications include: 1. Clonidine. 2. Maxzide. 3. Cephalexin. 4. Trazodone. 5. Baclofen. 6. Fluoxetine. 7. Aspirin. 8. Keppra 500 twice daily. 9. Metoprolol. 10. Bupropion. 11. Estradiol. 12. Lyrica 25 t.i.d. The patient has a fentanyl pump, but stated that it stopped working about 5 or 6 days ago because its battery . ALLERGIES: 1. PENICILLIN. 2. IODINE. SOCIAL HISTORY: A long history of smoking, but the patient quit. No alcohol or drug use. FAMILY HISTORY: Noncontributory. CURRENT MEDICATIONS: 1. Nicotine patch. 2. Fentanyl patch. 3. Tramadol. 4. Aspirin. 5. Toprol. 6. Maxzide. 7. Keppra 500 twice daily. 8. Wellbutrin. 9. Prozac. 10. Baclofen. 11. Lyrica. 12. Desyrel. The patient had 2 CAT scans of the head. Both did not show any acute abnormality. LABORATORY: Shows essentially a normal CBC, comprehensive metabolic panel. On admission showed BUN 25, creatinine 0.98. Today's BUN 18, creatinine 0.98 as well. The rest of a comprehensive metabolic panel was within normal limits. Cholesterol 146, LDL 76. Coagulation profile within normal limits as well. REVIEW OF SYSTEMS: All pertinent positives included in the above history of present illness. The patient denied any weakness or speech difficulties. She has had numbness in the left leg for approximately 1 year. PHYSICAL EXAMINATION: VITAL SIGNS: Today temperature 98.0, pulse 76, respirations 18, blood pressure 135/85. GENERAL: Not in acute distress, lying in bed. HEENT: Normocephalic, atraumatic head. NECK: Supple. No meningeal signs. No carotid bruit. LUNGS: Clear to auscultation bilaterally. CARDIAC: Normal cardiac rhythm and sounds. ABDOMEN: Soft. Present bowel sounds. EXTREMITIES: No cyanosis, clubbing or edema. NEUROLOGIC EXAM: She is awake, alert, and oriented x3, with fluent speech. Cranial nerve examination shows intact visual martinez bilaterally. Pupils are reactive, from 3 to 2 mm bilaterally. Extraocular movements are intact, without nystagmus. Symmetrical face. Preserved facial strength and sensation. Tongue is in midline. Palate elevates symmetrically. Motor strength examination seems to be preserved in all extremities. Normal bulk and tone. Sensory examination shows diminution of perception of pinprick and touch in the left lower extremity to slightly above the knee level, as well as in the right toe. Deep tendon reflexes 2+ throughout. Downgoing toes bilaterally. Coordination preserved on [id number] testing. No dysmetria or tremor. Gait was not assessed. IMPRESSION: Transient speech difficulties, which was witnessed in the primary doctor's orifice. Could reflect a transient ischemic attack or at least theoretically may relate to partial seizure, though the patient claims to have recollection of the event, so it is not likely to be a complex partial seizure, may be simple partial. My plan is to obtain MRI of the brain. I do not think that the patient's fentanyl pump should be a contraindication, given that the pump does not work, and according to the patient, should be replaced. Also will obtain a carotid ultrasound. Start the patient at least on a small dose of a statin and continue on aspirin. Will increase Keppra to 750 mg twice daily. Continue the current treatment otherwise. Thank you very much for this interesting consultation. Dictated By: DIRK RODRIGUEZ/CHEYENNE Conf#: [id number] DID#: [id number] MTDD
--- NOTE | 2016-11-18 14:50 | RADRPT ---
PROCEDURE: US carotid arteries. CLINICAL INDICATION: Dizziness. Transient ischemic attack. TECHNIQUE: Multiple sonographic images of the carotid arteries and vertebral arteries were obtaine d utilizing best scale, duplex, and color-flow imaging. The images were reviewed on a PACS workstati on. COMPARISON: No prior studies are available for comparison. FINDINGS: Evaluation of the right carotid bifurcation region reveals mild atherosclerotic disease. Evaluation of the left carotid bifurcation region reveals mild atherosclerotic disease. There is antegrade flow within the vertebral arteries bilaterally. RIGHT CAROTID MEASUREMENTS: Common Carotid [id number] (cm/sec) Internal Carotid Artery 83 (cm/sec) External Carotid Artery 53 (cm/sec) Vertebral Artery 41 (cm/sec) Internal Carotid/Common Carotid1.2 LEFT CAROTID MEASUREMENTS: Common Carotid [id number] (cm/sec) Internal Carotid Artery 58 (cm/sec) External Carotid Artery 46 (cm/sec) Vertebral Artery 40 (cm/sec) Internal Carotid/Common Carotid0.8 Validated velocity measurements with angiographic measurements. Velocity criteria are extrapolated f rom diameter data as defined by the Society of Radiologists in Ultrasound Consensus Conference. Radi ology 2003; 229;340-346. This study does indirectly reference the measurement of the distal ICA gabriella meter as the denominator for stenosis measurement. IMPRESSION: 1. Less than 50% stenosis bilaterally in the internal carotid arteries. 2. Normal antegrade flow in the vertebral arteries bilaterally. RPTAT: QQ SRU Consensus Conference Criteria for the Diagnosis of Carotid Artery Stenosis* Degree of Stenosis, % ICA PSV, cm/sec Plaque Estimate, % ICA/CCA PSV Ratio Normal <125 None <2.0 <50 <125 <50 <2.0 50 69 125-230 >50 2.0-4.0 >70 but less than near occlusion >230 >50 <4.0 Near occlusion High, low, or undetectable Visible Variable Total occlusion Undetectable Visible, no detectable lumen Not applicable *Cartoid artery stenosis: best-scale and Doppler US diagnosis. Society of Radiologists in Ultrasound Consensus Conference. Radiology 2003; 229: 340-346 .Yosef Vital MD, Date Time Electronically viewed and signed by .Yosef Vital MD, on 11/18/2016 14:49 .R/
[2016-11-18] MEDS: ATORVASTATIN 20 MG TAB PO SCH (20:50)
[2016-11-18] MEDS: traZODone 50 MG TAB PO SCH (20:51)
[2016-11-18] MEDS: LEVETIRACETAM 750 MG TAB PO SCH (20:51)
--- NOTE | 2016-11-18 21:45 | PN ---
DATE: 11/18/2016 SUBJECTIVE: Follow up on 61-year-old female who was admitted with chronic pain syndrome. The jeff ent is with a pain pump, which had recently stopped working. The patient also with history of depre ssion, hypertension. The patient was referred by primary doctor's office for evaluation for possibl e TIA. The patient had symptoms of aphasia and blurred speech, which was resolved. The patient cur rently is awake, alert and oriented. Moves all extremities. Denies any neurological deficits. He speech is clear. The patient stated that she continues chest pain, which is not relieved by fentany l patch. Denies nausea, vomiting, diarrhea. OBJECTIVE VITAL SIGNS: Temperature is 98.1, pulse is 81, blood pressure 128/77, respiratory rate 17, oxygen s aturation 95% on room air. GENERAL: Well-developed, well-nourished female in no acute distress. HEENT: Head is atraumatic, normocephalic. PERRLA. NECK: Supple. No cervical lymphadenopathy, no thyromegaly. LUNGS: Clear bilaterally. No rhonchi, wheezes or noted. HEART: Normal S1, S2. No murmurs, gallops, clicks, rubs noted. The patient is sinus rhythm on tel emetry. ABDOMEN: Round, soft, nondistended, nontender. Bowel sounds present. EXTREMITIES: There is no edema, clubbing, cyanosis. Pulses equal bilaterally 2+. SKIN: There is no rash, petechiae noted. NEUROLOGIC: The patient is alert and oriented x4, moves all extremities. No neurologic deficits no barrie. LABORATORY DATA: Today CBC: White blood cells 7.9, hemoglobin 13.9, hematocrit 40.6, platelets 130 . Chemistry: Sodium is 150, potassium is 3.5, chloride 107, carbon dioxide 31, anion gap 16, BUN i s 18, creatinine 0.98, glucose 93, calcium is 9.7. ASSESSMENT AND PLAN: 1. Possible transient ischemic attack, Dr. Merritt, neurology consult has evaluated. The pat ient is pending MRI of the brain. Continue aspirin. 2. Possible seizure with patient with history of seizure. Continue Keppra, increased rate. 3. Chronic pain syndrome. The patient stated that current regimen is not sufficient. The patient previously was on pain medication pump which currently is not working, functioning. Dr. Pennington is asked to see patient in pain management. 4. Tobacco dependence. Continue nicotine patch. 5. Hypertension. Continue metoprolol. The patient is continued on Keflex. The patient was receiv ing for tooth infection. 6. Further recommendations based on clinical course. Plan of care discussed with Dr. Stinson. Dictated By: SANDEEP FORD ADON for DANNIE STINSON MD SR/NTS Conf#: [id number] DID#: [id number]
[2016-11-18 22:51] LABS: ADD UMIC NO; URINE BILIRUBIN (Dip) NEGATIVE (NEGATIVE); URINE BLOOD (Dip) NEGATIVE (NEGATIVE); URINE COLOR LT. YELLOW (YELLOW); URINE GLUCOSE (Dip) NEGATIVE (NEGATIVE); URINE KETONES (Dip) NEGATIVE (NEGATIVE); URINE LEUKOCYTE ESTERASE (Dip) NEGATIVE (NEGATIVE); URINE NITRITE (Dip) NEGATIVE (NEGATIVE); URINE TOTAL PROTEIN (Dip) NEGATIVE (NEGATIVE); URINE UROBILINOGEN (Dip) 0.2 E.U./dL (0.1-1.0)
[2016-11-19] VITALS (13 sets, daily range): BP systolic 98–139; BP diastolic 61–86; PULSE 58–82; RESP 16–19
[2016-11-19] MEDS: CEPHALEXIN 500 MG CAP PO SCH ×4 (00:19→17:12)
[2016-11-19 06:45] LABS: POTASSIUM 3.6 mmol/L (3.5-5.1)
[2016-11-19 06:48] LABS: CREATININE 0.95 mg/dl (0.44-1.00)
[2016-11-19] MEDS: FLUOXETINE 20 MG CAP PO SCH ×2 (09:21→22:06)
[2016-11-19] MEDS: PREGABALIN 25 MG CAP PO SCH ×3 (09:21→22:06)
[2016-11-19] MEDS: TRIAMTERENE/HCTZ (37.5/25) TAB PO SCH (09:21)
[2016-11-19] MEDS: ASPIRIN (EC) 81 MG TAB PO SCH (09:21)
[2016-11-19] MEDS: LEVETIRACETAM 750 MG TAB PO SCH ×2 (09:21→22:06)
[2016-11-19] MEDS: BACLOFEN 10 MG TAB PO SCH ×4 (09:23→22:07)
[2016-11-19] MEDS: ESTRADIOL 1 MG TAB PO SCH (09:23)
[2016-11-19] MEDS: BUPROPION (SR) 150 MG TAB PO SCH ×2 (09:25→22:14)
[2016-11-19] MEDS: METOPROLOL (XL) 50 MG TAB PO SCH (09:25)
[2016-11-19] MEDS: NICOTINE (21 MG/24 HR) PATCH TRANSDERM SCH (09:25)
--- NOTE | 2016-11-19 12:19 | CONS ---
Date/Time of Note Date/Time of Note DATE: 11/19/16 TIME: 12:17 Assessment/Plan Assessment/Plan Additional Assessment/Plan Assessment/Plan Additional Assessment/Plan IMPRESSION: 1. Chronic abdominal pain.better. 2. Depression. 3. Fibromyalgia. 4. Hypertension. 5. Emphysema. 6. Chronic pain syndrome. 7. TIA,on aspirin 8. Seizure disorder,on Keppra Plan had colonoscopy 4 years ago negative had also surgery for adhesion will follow as op Consultation Date/Type/Reason Admit Date/Time Nov 18, 2016 at 12:29 24 HR Interval Summary Constitutional: improved Exam/Review of Systems Vital Signs Vitals Vital Signs Date Time Temp Pulse Resp B/P Pulse Ox O2 Delivery O2 Flow Rate FiO2 11/19/16 11:32 98.0 73 18 106/61 95 11/18/16 20:00 Room Air 11/17/16 20:02 2.0 Intake and Output 11/18/16 11/18/16 11/19/16 15:00 23:00 07:00 Intake Total 850 ml 500 ml Balance 850 ml 500 ml Exam Constitutional: alert, oriented, well developed Psych: nl mood/affect, no complaints Head: atraumatic, normocephalic Eyes: EOMI, PERRL, nl conjunctiva, nl lids, nl sclera ENMT: nl external ears & nose, nl lips & teeth, nl nasal mucosa & septum Neck: non-tender, supple Respiratory: clear to auscultation, normal air movement Cardiovascular: nl pulses, regular rate and rhythm Gastrointestinal: nl liver, spleen, non-tender, soft Musculoskeletal: nl extremities to inspection, nl gait and stance Extremities: normal pulses Neurological: PROFESSOR OF NURSING II-XII intact, nl mental status, nl speech, nl strength Skin: nl turgor, No rash or lesions Lymph: nl lymph nodes Results Result Diagram: 11/18/16 0550 11/19/16 0550 Results 24 hrs Laboratory Tests Test 11/18/16 21:00 11/19/16 05:50 Urine Bilirubin NEGATIVE Urine Clarity SLIGHTLY CLOUDY Urine Color LT. YELLOW Urine Glucose NEGATIVE Urine Hemoglobin NEGATIVE Urine Ketones NEGATIVE Urine Leukocyte Esterase NEGATIVE Urine Nitrite NEGATIVE Urine Specific Ralls >=1.030 H Urine Total Protein NEGATIVE Urine Urobilinogen 0.2 E.U./dL Urine pH 6.0 Anion Gap 13 Blood Urea Nitrogen 28 H Calcium Level 9.0 Carbon Dioxide Level 32 H Chloride Level 102 Creatinine 0.95 Glucose Level 99 Potassium Level 3.6 Random Cortisol 2.6 Sodium Level 143 Medications Medications Current Medications Aspirin (Halfprin) 81 mg DAILY PO Last administered on 11/19/16 09:21; Admin Dose 81 MG; Start 11/17/16 at 09:00 Bupropion HCl (Wellbutrin Sr) 150 mg BID PO Last administered on 11/19/16 09: 25; Admin Dose 150 MG; Start 11/17/16 at 02:57 Cephalexin (Keflex) 500 mg Q6 PO Last administered on 11/19/16 12:12; Admin Dose 500 MG; Start 11/17/16 at 00:00 Fluoxetine HCl (Prozac) 20 mg BID PO Last administered on 11/19/16 09:21; Admin Dose 20 MG; Start 11/17/16 at 02:57 Levalbuterol (Xopenex Hfa) 1 puff QID PRN INH WHEEZING AND SOB; Start 11/16/16 at 22:00 Metoprolol Succinate (Toprol Xl) 50 mg DAILY PO Last administered on 11/19/16 09:25; Admin Dose 50 MG; Start 11/17/16 at 09:00 Pregabalin (Lyrica) 25 mg TID PO Last administered on 11/19/16 12:12; Admin Dose 25 MG; Start 11/17/16 at 02:56 Trazodone HCl (Desyrel) 150 mg QHS PO Last administered on 11/18/16 20:51; Admin Dose 150 MG; Start 11/17/16 at 02:56 Triamterene/HCTZ (Maxzide-25) 1 tab DAILY PO Last administered on 11/19/16 09: 21; Admin Dose 1 TAB; Start 11/17/16 at 09:00 Acetaminophen (Tylenol Tab) 650 mg Q4H PRN PO PAIN AND OR ELEVATED TEMP; Start 11/16/16 at 22:30 Hydralazine HCl (Apresoline) 10 mg Q4H PRN IV FOR SYSTOLIC B/P ABOVE 160; Start 11/16/16 at 22:30 Lorazepam (Ativan) 0.5 mg Q6H PRN IV AGITATION; Start 11/16/16 at 22:30 Baclofen (Lioresal) 40 mg QID PO Last administered on 11/19/16 12:13; Admin Dose 40 MG; Start 11/17/16 at 02:57 Nicotine (Nicoderm 21 Mg/ 24hr) 1 patch DAILY TRANSDERM Last administered on 09:25; Admin Dose 1 PATCH; Start 11/18/16 at 09:00 Tramadol HCl (Ultram) 50 mg Q6H PRN PO PAIN; Start 11/17/16 at 20:30 Fentanyl (Duragesic 100 Mcg/Hr Patch) 1 patch Q3D TRANSDERM Last administered on 11/18/16 01:12; Admin Dose 1 PATCH; Start 11/18/16 at 00:00 Levetiracetam (Keppra) 750 mg BID PO Last administered on 11/19/16 09:21; Admin Dose 750 MG; Start 11/18/16 at 21:00 Atorvastatin Calcium (Lipitor) 20 mg HS PO Last administered on 11/18/16 20:50 ; Admin Dose 20 MG; Start 11/18/16 at 21:00 Estradiol (Estrace) 1 mg DAILY PO Last administered on 11/19/16 09:23; Admin Dose 1 MG; Start 11/19/16 at 09:00 THIAGO ALMEIDA MD Nov 19, 2016 12:19
--- NOTE | 2016-11-19 16:14 | PN ---
Date/Time of Note Date/Time of Note DATE: 11/19/16 TIME: 16:13 Assessment/Plan VTE Prophylaxis VTE Prophylaxis Intervention: other Lines/Catheters IV Catheter Type (from Nrs): Saline Lock Urinary Cath still in place: No Assessment/Plan Assessment/Plan 1. Possible transient ischemic attack, Dr. Merritt, neurology consult has evaluated. The patient is pending MRI of the brain. Continue aspirin. 2. Possible seizure with patient with history of seizure. Continue Keppra, increased rate. 3. Chronic pain syndrome. The patient stated that current regimen is not sufficient. The patient previously was on pain medication pump which currently is not working, functioning. Dr. Pennington is asked to see patient in pain management. 4. Tobacco dependence. Continue nicotine patch. 5. Hypertension. Continue metoprolol. The patient is continued on Keflex. The patient was receiving for tooth infection. 6. Further recommendations based on clinical course. Plan of care discussed with Dr. Smith. Subjective 24 Hr Interval Summary Constitutional: improved Eyes: no complaints ENT: no complaints Respiratory: no complaints Cardiovascular: no complaints Gastrointestinal: no complaints Genitourinary: no complaints Musculoskeletal: no complaints Skin: no complaints Neurologic: confusion Endocrine: no complaints Lymphatic: no complaints Exam/Review of Systems Vital Signs Vitals Vital Signs Date Time Temp Pulse Resp B/P Pulse Ox O2 Delivery O2 Flow Rate FiO2 11/19/16 15:19 98.0 77 18 120/66 96 11/18/16 20:00 Room Air 11/17/16 20:02 2.0 Intake and Output 11/18/16 11/18/16 11/19/16 15:00 23:00 07:00 Intake Total 850 ml 500 ml Balance 850 ml 500 ml Exam Constitutional: alert, well developed Psych: nl mood/affect Eyes: PERRL, nl sclera ENMT: nl external ears & nose Neck: non-tender Respiratory: clear to auscultation Cardiovascular: nl pulses Gastrointestinal: non-tender, soft Musculoskeletal: nl extremities to inspection Neurological: confused (at times), nl speech Results Result Diagram: 11/18/16 0550 11/19/16 0550 Results 24 hrs Laboratory Tests Test 11/18/16 21:00 11/19/16 05:50 Urine Bilirubin NEGATIVE Urine Clarity SLIGHTLY CLOUDY Urine Color LT. YELLOW Urine Glucose NEGATIVE Urine Hemoglobin NEGATIVE Urine Ketones NEGATIVE Urine Leukocyte Esterase NEGATIVE Urine Nitrite NEGATIVE Urine Specific [place] >=1.030 H Urine Total Protein NEGATIVE Urine Urobilinogen 0.2 E.U./dL Urine pH 6.0 Anion Gap 13 Blood Urea Nitrogen 28 H Calcium Level 9.0 Carbon Dioxide Level 32 H Chloride Level 102 Creatinine 0.95 Glucose Level 99 Potassium Level 3.6 Random Cortisol 2.6 Sodium Level 143 Medications Medications Current Medications Aspirin (Halfprin) 81 mg DAILY PO Last administered on 11/19/16 09:21; Admin Dose 81 MG; Start 11/17/16 at 09:00 Bupropion HCl (Wellbutrin Sr) 150 mg BID PO Last administered on 11/19/16 09: 25; Admin Dose 150 MG; Start 11/17/16 at 02:57 Cephalexin (Keflex) 500 mg Q6 PO Last administered on 11/19/16 12:12; Admin Dose 500 MG; Start 11/17/16 at 00:00 Fluoxetine HCl (Prozac) 20 mg BID PO Last administered on 11/19/16 09:21; Admin Dose 20 MG; Start 11/17/16 at 02:57 Levalbuterol (Xopenex Hfa) 1 puff QID PRN INH WHEEZING AND SOB; Start 11/16/16 at 22:00 Metoprolol Succinate (Toprol Xl) 50 mg DAILY PO Last administered on 11/19/16 09:25; Admin Dose 50 MG; Start 11/17/16 at 09:00 Pregabalin (Lyrica) 25 mg TID PO Last administered on 11/19/16 12:12; Admin Dose 25 MG; Start 11/17/16 at 02:56 Trazodone HCl (Desyrel) 150 mg QHS PO Last administered on 11/18/16 20:51; Admin Dose 150 MG; Start 11/17/16 at 02:56 Triamterene/HCTZ (Maxzide-25) 1 tab DAILY PO Last administered on 11/19/16 09: 21; Admin Dose 1 TAB; Start 11/17/16 at 09:00 Acetaminophen (Tylenol Tab) 650 mg Q4H PRN PO PAIN AND OR ELEVATED TEMP; Start 11/16/16 at 22:30 Hydralazine HCl (Apresoline) 10 mg Q4H PRN IV FOR SYSTOLIC B/P ABOVE 160; Start 11/16/16 at 22:30 Lorazepam (Ativan) 0.5 mg Q6H PRN IV AGITATION; Start 11/16/16 at 22:30 Baclofen (Lioresal) 40 mg QID PO Last administered on 11/19/16 12:13; Admin Dose 40 MG; Start 11/17/16 at 02:57 Nicotine (Nicoderm 21 Mg/ 24hr) 1 patch DAILY TRANSDERM Last administered on 09:25; Admin Dose 1 PATCH; Start 11/18/16 at 09:00 Tramadol HCl (Ultram) 50 mg Q6H PRN PO PAIN Last administered on 11/19/16 14: 03; Admin Dose 50 MG; Start 11/17/16 at 20:30 Fentanyl (Duragesic 100 Mcg/Hr Patch) 1 patch Q3D TRANSDERM Last administered on 11/18/16 01:12; Admin Dose 1 PATCH; Start 11/18/16 at 00:00 Levetiracetam (Keppra) 750 mg BID PO Last administered on 11/19/16 09:21; Admin Dose 750 MG; Start 11/18/16 at 21:00 Atorvastatin Calcium (Lipitor) 20 mg HS PO Last administered on 11/18/16 20:50 ; Admin Dose 20 MG; Start 11/18/16 at 21:00 Estradiol (Estrace) 1 mg DAILY PO Last administered on 11/19/16 09:23; Admin Dose 1 MG; Start 11/19/16 at 09:00 SARAI CHURCH Nov 19, 2016 16:13
[2016-11-19] MEDS: ATORVASTATIN 20 MG TAB PO SCH (22:06)
[2016-11-19] MEDS: traZODone 50 MG TAB PO SCH (22:07)
[2016-11-20] VITALS (12 sets, daily range): BP systolic 97–157; BP diastolic 59–93; PULSE 63–80; RESP 16–18
[2016-11-20] MEDS: CEPHALEXIN 500 MG CAP PO SCH ×5 (00:42→23:11)
[2016-11-20 07:15] LABS: BASOPHILS % 0.5 % (0.0-2.0); EOSINOPHILS # 0.1 10^3/ul (0.0-0.5); EOSINOPHILS % 2.6 % (0.0-7.0); HEMATOCRIT 39.2 % (37.0-47.0); HEMOGLOBIN 13.4 g/dl (12.0-16.0); LYMPHOCYTES # 1.2 10^3/ul (0.8-2.9); LYMPHOCYTES % 29.2 % (15.0-51.0); MEAN CORPUSCULAR HEMOGLOBIN 33.5 pg (29.0-33.0); MEAN CORPUSCULAR HGB CONC 34.3 g/dl (32.0-37.0); MEAN CORPUSCULAR VOLUME 97.5 fl (82.0-101.0); MEAN PLATELET VOLUME 8.1 fl (7.4-10.4); MONOCYTE # 0.4 10^3/ul (0.3-0.9); MONOCYTES % 9.5 % (0.0-11.0); NEUTROPHIL # 2.4 10^3/ul (1.6-7.5); NEUTROPHILS % 58.2 % (39.0-77.0); PLATELET COUNT 119 10^3/UL (140-440); RED BLOOD COUNT 4.02 10^6/ul (4.20-5.40); RED CELL DISTRIBUTION WIDTH 12.2 % (11.5-14.5); UNCORRECTED WBC 4.1 10^3/ul (4.8-10.8); WHITE BLOOD COUNT 4.1 10^3/ul (4.8-10.8)
[2016-11-20 07:32] LABS: CONDITION 1
[2016-11-20 07:37] LABS: POTASSIUM 4.1 mmol/L (3.5-5.1)
[2016-11-20 07:40] LABS: CALCIUM 9.2 mg/dl (8.4-10.2); CREATININE 0.94 mg/dl (0.44-1.00)
--- NOTE | 2016-11-20 08:04 | CONS ---
Date/Time of Note Date/Time of Note DATE: 11/20/16 TIME: 08:03 Assessment/Plan Assessment/Plan Additional Assessment/Plan Additional Assessment/Plan IMPRESSION: 1. Chronic abdominal pain.better. 2. Depression. 3. Fibromyalgia. 4. Hypertension. 5. Emphysema. 6. Chronic pain syndrome. 7. TIA,on aspirin 8. Seizure disorder,on Keppra Plan had colonoscopy 4 years ago negative had also surgery for adhesion Consultation Date/Type/Reason Admit Date/Time Nov 18, 2016 at 12:29 24 HR Interval Summary Constitutional: improved Exam/Review of Systems Vital Signs Vitals Vital Signs Date Time Temp Pulse Resp B/P Pulse Ox O2 Delivery O2 Flow Rate FiO2 11/20/16 07:25 98.1 70 18 135/83 96 11/18/16 20:00 Room Air 11/17/16 20:02 2.0 Intake and Output 11/19/16 11/19/16 11/20/16 15:00 23:00 07:00 Intake Total 750 ml 400 ml Output Total 300 ml 1000 ml Balance 450 ml -600 ml Exam Constitutional: alert, oriented, well developed Psych: nl mood/affect, no complaints Head: atraumatic, normocephalic Eyes: EOMI, PERRL, nl conjunctiva, nl lids, nl sclera ENMT: nl external ears & nose, nl lips & teeth, nl nasal mucosa & septum Neck: non-tender, supple Respiratory: clear to auscultation, normal air movement Cardiovascular: nl pulses, regular rate and rhythm Gastrointestinal: nl liver, spleen, non-tender, soft Musculoskeletal: nl extremities to inspection, nl gait and stance Extremities: normal pulses Neurological: [employer] II-XII intact, nl mental status, nl speech, nl strength Skin: nl turgor, No rash or lesions Lymph: nl lymph nodes Results Result Diagram: 11/20/16 0615 11/20/16 0615 Results 24 hrs Laboratory Tests Test 11/20/16 06:15 Anion Gap 14 Basophils # 0.0 Basophils % 0.5 Blood Urea Nitrogen 24 H Calcium Level 9.2 Carbon Dioxide Level 35 H Chloride Level 99 Creatinine 0.94 Eosinophils # 0.1 Eosinophils % 2.6 Glucose Level 86 Hematocrit 39.2 Hemoglobin 13.4 Lymphocytes # 1.2 Lymphocytes % 29.2 Mean Corpuscular Hemoglobin 33.5 H Mean Corpuscular Hemoglobin Concent 34.3 Mean Corpuscular Volume 97.5 Mean Platelet Volume 8.1 Monocytes # 0.4 Monocytes % 9.5 Neutrophils # 2.4 Neutrophils % 58.2 Nucleated Red Blood Cells # 0.0 Nucleated Red Blood Cells % 0.0 Platelet Count 119 L Potassium Level 4.1 Red Blood Count 4.02 L Red Cell Distribution Width 12.2 Sodium Level 144 White Blood Count 4.1 #L Medications Medications Current Medications Aspirin (Halfprin) 81 mg DAILY PO Last administered on 11/19/16 09:21; Admin Dose 81 MG; Start 11/17/16 at 09:00 Bupropion HCl (Wellbutrin Sr) 150 mg BID PO Last administered on 11/19/16 22: 14; Admin Dose 150 MG; Start 11/17/16 at 02:57 Cephalexin (Keflex) 500 mg Q6 PO Last administered on 11/20/16 05:41; Admin Dose 500 MG; Start 11/17/16 at 00:00 Fluoxetine HCl (Prozac) 20 mg BID PO Last administered on 11/19/16 22:06; Admin Dose 20 MG; Start 11/17/16 at 02:57 Levalbuterol (Xopenex Hfa) 1 puff QID PRN INH WHEEZING AND SOB; Start 11/16/16 at 22:00 Metoprolol Succinate (Toprol Xl) 50 mg DAILY PO Last administered on 11/19/16 09:25; Admin Dose 50 MG; Start 11/17/16 at 09:00 Pregabalin (Lyrica) 25 mg TID PO Last administered on 11/19/16 22:06; Admin Dose 25 MG; Start 11/17/16 at 02:56 Trazodone HCl (Desyrel) 150 mg QHS PO Last administered on 11/19/16 22:07; Admin Dose 150 MG; Start 11/17/16 at 02:56 Triamterene/HCTZ (Maxzide-25) 1 tab DAILY PO Last administered on 11/19/16 09: 21; Admin Dose 1 TAB; Start 11/17/16 at 09:00 Acetaminophen (Tylenol Tab) 650 mg Q4H PRN PO PAIN AND OR ELEVATED TEMP; Start 11/16/16 at 22:30 Hydralazine HCl (Apresoline) 10 mg Q4H PRN IV FOR SYSTOLIC B/P ABOVE 160; Start 11/16/16 at 22:30 Lorazepam (Ativan) 0.5 mg Q6H PRN IV AGITATION; Start 11/16/16 at 22:30 Baclofen (Lioresal) 40 mg QID PO Last administered on 11/19/16 22:07; Admin Dose 40 MG; Start 11/17/16 at 02:57 Nicotine (Nicoderm 21 Mg/ 24hr) 1 patch DAILY TRANSDERM Last administered on 09:25; Admin Dose 1 PATCH; Start 11/18/16 at 09:00 Tramadol HCl (Ultram) 50 mg Q6H PRN PO PAIN Last administered on 11/19/16 14: 03; Admin Dose 50 MG; Start 11/17/16 at 20:30 Fentanyl (Duragesic 100 Mcg/Hr Patch) 1 patch Q3D TRANSDERM Last administered on 11/18/16 01:12; Admin Dose 1 PATCH; Start 11/18/16 at 00:00 Levetiracetam (Keppra) 750 mg BID PO Last administered on 11/19/16 22:06; Admin Dose 750 MG; Start 11/18/16 at 21:00 Atorvastatin Calcium (Lipitor) 20 mg HS PO Last administered on 11/19/16 22:06 ; Admin Dose 20 MG; Start 11/18/16 at 21:00 Estradiol (Estrace) 1 mg DAILY PO Last administered on 11/19/16 09:23; Admin Dose 1 MG; Start 11/19/16 at 09:00 THIAGO ALMEIDA MD Nov 20, 2016 08:04
[2016-11-20] MEDS: BACLOFEN 10 MG TAB PO SCH ×4 (09:47→21:15)
[2016-11-20] MEDS: METOPROLOL (XL) 50 MG TAB PO SCH (09:48)
[2016-11-20] MEDS: BUPROPION (SR) 150 MG TAB PO SCH ×2 (09:48→21:14)
[2016-11-20] MEDS: ESTRADIOL 1 MG TAB PO SCH (09:48)
[2016-11-20] MEDS: ASPIRIN (EC) 81 MG TAB PO SCH (09:48)
[2016-11-20] MEDS: NICOTINE (21 MG/24 HR) PATCH TRANSDERM SCH (09:48)
[2016-11-20] MEDS: FLUOXETINE 20 MG CAP PO SCH ×2 (09:48→21:15)
[2016-11-20] MEDS: LEVETIRACETAM 750 MG TAB PO SCH ×2 (09:48→21:15)
[2016-11-20] MEDS: TRIAMTERENE/HCTZ (37.5/25) TAB PO SCH (09:48)
[2016-11-20] MEDS: PREGABALIN 25 MG CAP PO SCH ×3 (09:51→21:15)
--- NOTE | 2016-11-20 13:36 | CONS ---
Date/Time of Note Date/Time of Note DATE: 11/20/16 TIME: 13:31 Consult Date/Type/Reason Admit Date/Time Nov 18, 2016 at 12:29 Initial Consult Date Subjective no acute events. generalized pains, thinks that not getting enough pain meds Objective Vital Signs Date Time Temp Pulse Resp B/P Pulse Ox O2 Delivery O2 Flow Rate FiO2 11/20/16 12:27 80 11/20/16 11:21 98.1 18 143/88 96 11/18/16 20:00 Room Air 11/17/16 20:02 2.0 Intake and Output 11/19/16 11/19/16 11/20/16 15:00 23:00 07:00 Intake Total 750 ml 400 ml Output Total 300 ml 1000 ml Balance 450 ml -600 ml Results/Medications Result Diagram: 11/20/1615 11/20/1615 Results 24 hrs Laboratory Tests Test 11/20/16 06:15 Anion Gap 14 Basophils # 0.0 Basophils % 0.5 Blood Urea Nitrogen 24 H Calcium Level 9.2 Carbon Dioxide Level 35 H Chloride Level 99 Creatinine 0.94 Eosinophils # 0.1 Eosinophils % 2.6 Glucose Level 86 Hematocrit 39.2 Hemoglobin 13.4 Lymphocytes # 1.2 Lymphocytes % 29.2 Mean Corpuscular Hemoglobin 33.5 H Mean Corpuscular Hemoglobin Concent 34.3 Mean Corpuscular Volume 97.5 Mean Platelet Volume 8.1 Monocytes # 0.4 Monocytes % 9.5 Neutrophils # 2.4 Neutrophils % 58.2 Nucleated Red Blood Cells # 0.0 Nucleated Red Blood Cells % 0.0 Platelet Count 119 L Potassium Level 4.1 Red Blood Count 4.02 L Red Cell Distribution Width 12.2 Sodium Level 144 White Blood Count 4.1 #L Medications Current Medications Aspirin (Halfprin) 81 mg DAILY PO Last administered on 11/20/16 09:48; Admin Dose 81 MG; Start 11/17/16 at 09:00 Bupropion HCl (Wellbutrin Sr) 150 mg BID PO Last administered on 11/20/16 09: 48; Admin Dose 150 MG; Start 11/17/16 at 02:57 Cephalexin (Keflex) 500 mg Q6 PO Last administered on 11/20/16 12:29; Admin Dose 500 MG; Start 11/17/16 at 00:00 Fluoxetine HCl (Prozac) 20 mg BID PO Last administered on 11/20/16 09:48; Admin Dose 20 MG; Start 11/17/16 at 02:57 Levalbuterol (Xopenex Hfa) 1 puff QID PRN INH WHEEZING AND SOB; Start 11/16/16 at 22:00 Metoprolol Succinate (Toprol Xl) 50 mg DAILY PO Last administered on 11/20/16 09:48; Admin Dose 50 MG; Start 11/17/16 at 09:00 Pregabalin (Lyrica) 25 mg TID PO Last administered on 11/20/16 12:28; Admin Dose 25 MG; Start 11/17/16 at 02:56 Trazodone HCl (Desyrel) 150 mg QHS PO Last administered on 11/19/16 22:07; Admin Dose 150 MG; Start 11/17/16 at 02:56 Triamterene/HCTZ (Maxzide-25) 1 tab DAILY PO Last administered on 11/20/16 09: 48; Admin Dose 1 TAB; Start 11/17/16 at 09:00 Acetaminophen (Tylenol Tab) 650 mg Q4H PRN PO PAIN AND OR ELEVATED TEMP; Start 11/16/16 at 22:30 Hydralazine HCl (Apresoline) 10 mg Q4H PRN IV FOR SYSTOLIC B/P ABOVE 160; Start 11/16/16 at 22:30 Lorazepam (Ativan) 0.5 mg Q6H PRN IV AGITATION; Start 11/16/16 at 22:30 Baclofen (Lioresal) 40 mg QID PO Last administered on 11/20/16 12:29; Admin Dose 40 MG; Start 11/17/16 at 02:57 Nicotine (Nicoderm 21 Mg/ 24hr) 1 patch DAILY TRANSDERM Last administered on 09:48; Admin Dose 1 PATCH; Start 11/18/16 at 09:00 Tramadol HCl (Ultram) 50 mg Q6H PRN PO PAIN Last administered on 11/19/16 14: 03; Admin Dose 50 MG; Start 11/17/16 at 20:30 Fentanyl (Duragesic 100 Mcg/Hr Patch) 1 patch Q3D TRANSDERM Last administered on 11/18/16 01:12; Admin Dose 1 PATCH; Start 11/18/16 at 00:00 Levetiracetam (Keppra) 750 mg BID PO Last administered on 11/20/16 09:48; Admin Dose 750 MG; Start 11/18/16 at 21:00 Atorvastatin Calcium (Lipitor) 20 mg HS PO Last administered on 11/19/16 22:06 ; Admin Dose 20 MG; Start 11/18/16 at 21:00 Estradiol (Estrace) 1 mg DAILY PO Last administered on 11/20/16 09:48; Admin Dose 1 MG; Start 11/19/16 at 09:00 Assessment/Plan Chief Complaint/Hosp Course PHYSICAL EXAMINATION: GENERAL: Not in acute distress, lying in bed. HEENT: Normocephalic, atraumatic head. NECK: Supple. No meningeal signs. No carotid bruit. LUNGS: Clear to auscultation bilaterally. CARDIAC: Normal cardiac rhythm and sounds. ABDOMEN: Soft. Present bowel sounds. EXTREMITIES: No cyanosis, clubbing or edema. NEUROLOGIC EXAM: She is awake, alert, and oriented x3, with fluent speech. Cranial nerve examination shows intact visual martinez bilaterally. Pupils are reactive, from 3 to 2 mm bilaterally. Extraocular movements are intact, without nystagmus. Symmetrical face. Preserved facial strength and sensation. Tongue is in midline. Palate elevates symmetrically. Motor strength examination seems to be preserved in all extremities. Normal bulk and tone. Sensory examination shows diminution of perception of pinprick and touch in the left lower extremity to slightly above the knee level, as well as in the right toe. Deep tendon reflexes 2+ throughout. Downgoing toes bilaterally. Coordination preserved on [id number] testing. No dysmetria or tremor. Gait was not assessed. IMPRESSION/PLAN: Transient speech difficulties, which was witnessed in the primary doctor's orifice. Could reflect a transient ischemic attack or may relate to partial seizure, though the patient claims to have recollection of the event. MRI of the brain pending, not working fentanyl pump is not a contraindication. Continue statin and aspirin, Keppra 750 mg twice daily. Keep normotensive and euglycemic. Problems: DIRK CUELLAR MD Nov 20, 2016 13:36
--- NOTE | 2016-11-20 14:54 | PN ---
Date/Time of Note Date/Time of Note DATE: 11/20/16 TIME: 14:52 Assessment/Plan VTE Prophylaxis VTE Prophylaxis Intervention: SCD's Lines/Catheters IV Catheter Type (from Nrsg): Saline Lock Urinary Cath still in place: No Assessment/Plan Assessment/Plan 1. Possible transient ischemic attack, Dr. Merritt, neurology consult has evaluated. The patient is pending MRI of the brain. Continue aspirin. 2. Possible seizure with patient with history of seizure. Continue Keppra, increased rate. 3. Chronic pain syndrome. The patient stated that current regimen is not sufficient. The patient previously was on pain medication pump which currently is not working, functioning. Dr. Pennington is asked to see patient in pain management. 4. Tobacco dependence. Continue nicotine patch. 5. Hypertension. Continue metoprolol. 6. Tooth infection- continued on Keflex. Further recommendations based on clinical course. Plan of care discussed with Dr. Guillen Subjective 24 Hr Interval Summary Eyes: no complaints ENT: no complaints Respiratory: no complaints Cardiovascular: no complaints Gastrointestinal: no complaints Genitourinary: no complaints Musculoskeletal: no complaints Skin: no complaints Neurologic: no complaints Endocrine: no complaints Lymphatic: no complaints Psychological: nl mood/affect Immunologic: no complaints Exam/Review of Systems Vital Signs Vitals Vital Signs Date Time Temp Pulse Resp B/P Pulse Ox O2 Delivery O2 Flow Rate FiO2 11/20/16 12:27 80 11/20/16 11:21 98.1 18 143/88 96 11/18/16 20:00 Room Air 11/17/16 20:02 2.0 Intake and Output 11/19/16 11/19/16 11/20/16 15:00 23:00 07:00 Intake Total 750 ml 400 ml Output Total 300 ml 1000 ml Balance 450 ml -600 ml Exam Constitutional: alert, other Psych: nl mood/affect Head: atraumatic Eyes: EOMI ENMT: nl external ears & nose Neck: non-tender Respiratory: clear to auscultation Cardiovascular: nl pulses Gastrointestinal: non-tender, soft Musculoskeletal: nl extremities to inspection Extremities: normal pulses Neurological: nl speech, other Lymph: nontender Results Result Diagram: 11/20/16 0615 11/20/16 0615 Results 24 hrs Laboratory Tests Test 11/20/16 06:15 Anion Gap 14 Basophils # 0.0 Basophils % 0.5 Blood Urea Nitrogen 24 H Calcium Level 9.2 Carbon Dioxide Level 35 H Chloride Level 99 Creatinine 0.94 Eosinophils # 0.1 Eosinophils % 2.6 Glucose Level 86 Hematocrit 39.2 Hemoglobin 13.4 Lymphocytes # 1.2 Lymphocytes % 29.2 Mean Corpuscular Hemoglobin 33.5 H Mean Corpuscular Hemoglobin Concent 34.3 Mean Corpuscular Volume 97.5 Mean Platelet Volume 8.1 Monocytes # 0.4 Monocytes % 9.5 Neutrophils # 2.4 Neutrophils % 58.2 Nucleated Red Blood Cells # 0.0 Nucleated Red Blood Cells % 0.0 Platelet Count 119 L Potassium Level 4.1 Red Blood Count 4.02 L Red Cell Distribution Width 12.2 Sodium Level 144 White Blood Count 4.1 #L Medications Medications Current Medications Aspirin (Halfprin) 81 mg DAILY PO Last administered on 11/20/16 09:48; Admin Dose 81 MG; Start 11/17/16 at 09:00 Bupropion HCl (Wellbutrin Sr) 150 mg BID PO Last administered on 11/20/16 09: 48; Admin Dose 150 MG; Start 11/17/16 at 02:57 Cephalexin (Keflex) 500 mg Q6 PO Last administered on 11/20/16 12:29; Admin Dose 500 MG; Start 11/17/16 at 00:00 Fluoxetine HCl (Prozac) 20 mg BID PO Last administered on 11/20/16 09:48; Admin Dose 20 MG; Start 11/17/16 at 02:57 Levalbuterol (Xopenex Hfa) 1 puff QID PRN INH WHEEZING AND SOB; Start 11/16/16 at 22:00 Metoprolol Succinate (Toprol Xl) 50 mg DAILY PO Last administered on 11/20/16 09:48; Admin Dose 50 MG; Start 11/17/16 at 09:00 Pregabalin (Lyrica) 25 mg TID PO Last administered on 11/20/16 12:28; Admin Dose 25 MG; Start 11/17/16 at 02:56 Trazodone HCl (Desyrel) 150 mg QHS PO Last administered on 11/19/16 22:07; Admin Dose 150 MG; Start 11/17/16 at 02:56 Triamterene/HCTZ (Maxzide-25) 1 tab DAILY PO Last administered on 11/20/16 09: 48; Admin Dose 1 TAB; Start 11/17/16 at 09:00 Acetaminophen (Tylenol Tab) 650 mg Q4H PRN PO PAIN AND OR ELEVATED TEMP; Start 11/16/16 at 22:30 Hydralazine HCl (Apresoline) 10 mg Q4H PRN IV FOR SYSTOLIC B/P ABOVE 160; Start 11/16/16 at 22:30 Lorazepam (Ativan) 0.5 mg Q6H PRN IV AGITATION; Start 11/16/16 at 22:30 Baclofen (Lioresal) 40 mg QID PO Last administered on 11/20/16 12:29; Admin Dose 40 MG; Start 11/17/16 at 02:57 Nicotine (Nicoderm 21 Mg/ 24hr) 1 patch DAILY TRANSDERM Last administered on 09:48; Admin Dose 1 PATCH; Start 11/18/16 at 09:00 Tramadol HCl (Ultram) 50 mg Q6H PRN PO PAIN Last administered on 11/19/16 14: 03; Admin Dose 50 MG; Start 11/17/16 at 20:30 Fentanyl (Duragesic 100 Mcg/Hr Patch) 1 patch Q3D TRANSDERM Last administered on 11/18/16 01:12; Admin Dose 1 PATCH; Start 11/18/16 at 00:00 Levetiracetam (Keppra) 750 mg BID PO Last administered on 11/20/16 09:48; Admin Dose 750 MG; Start 11/18/16 at 21:00 Atorvastatin Calcium (Lipitor) 20 mg HS PO Last administered on 11/19/16 22:06 ; Admin Dose 20 MG; Start 11/18/16 at 21:00 Estradiol (Estrace) 1 mg DAILY PO Last administered on 11/20/16 09:48; Admin Dose 1 MG; Start 11/19/16 at 09:00 SARAI CHURCH Nov 20, 2016 14:53
--- NOTE | 2016-11-20 16:23 | RADRPT ---
PROCEDURE: MR Brain without contrast. CLINICAL INDICATION: TIAs. TECHNIQUE: An MRI of the brain was performed on a GE short bore 3.0 alicia scanner utilizing the fo llowing sequences: Sagittal T1 and axial weighted, axial T2 weighted, axial diffusion weighted (EPI technique [id number]) with axial ADC mapping, and axial FLAIR. Additionally, coronal GRE and sagittal FLAIR sequences were performed. COMPARISON: CT brain 11/17/2016. FINDINGS: No diffusion weighted abnormalities are seen to suggest the presence of acute ischemia or recent inf arct. No GRE susceptibility artifact is evident to suggest the presence of blood degradation produc ts. There is no intracranial hemorrhage, mass effect, or midline shift. No extra-axial fluid colle ction is seen. The ventricles and sulci are normal in size and configuration. Multiple small foci of increased T2 weighted/FLAIR signal intensity are seen in the periventricular and deep white matte r, nonspecific in appearance. Incidental note is made of prominent perivascular spaces seen within the deep and subcortical white matter of the frontal and parietal lobes in particular. The brainstem and cerebellum are grossly normal in signal intensity. Normal flow voids are visible in the proxim al intracranial arteries and dural sinuses, indicating patency. The paranasal sinuses are grossly c lear. IMPRESSION: 1. No evidence of acute intracranial pathology. 2. Multiple foci of increased T2 weighted/FLAIR signal intensity seen in the periventricular and de ep white matter, nonspecific in appearance though perhaps reflective of hypertensive microvascular i schemic disease, complicated migraines, or sequela from prior traumatic or inflammatory insults. 3. The brain is otherwise normal in appearance. RPTAT: AA .Radha Hill MD, Date Time Electronically viewed and signed by .Radha Hill MD, MD on 11/20/2016 16:22 .H/
[2016-11-20] MEDS: traZODone 50 MG TAB PO SCH (21:15)
[2016-11-20] MEDS: ATORVASTATIN 20 MG TAB PO SCH (21:15)
[2016-11-21] VITALS (10 sets, daily range): BP systolic 115–141; BP diastolic 63–85; PULSE 63–71; RESP 12–18
[2016-11-21] MEDS: CEPHALEXIN 500 MG CAP PO SCH ×3 (05:31→17:16)
[2016-11-21 05:42] LABS: BASOPHILS % 1.3 % (0.0-2.0); EOSINOPHILS # 0.1 10^3/ul (0.0-0.5); EOSINOPHILS % 2.6 % (0.0-7.0); HEMATOCRIT 40.1 % (37.0-47.0); HEMOGLOBIN 13.8 g/dl (12.0-16.0); LYMPHOCYTES % 29.2 % (15.0-51.0); MEAN CORPUSCULAR HEMOGLOBIN 33.4 pg (29.0-33.0); MEAN CORPUSCULAR HGB CONC 34.4 g/dl (32.0-37.0); MEAN CORPUSCULAR VOLUME 97.1 fl (82.0-101.0); MEAN PLATELET VOLUME 8.2 fl (7.4-10.4); MONOCYTE # 0.4 10^3/ul (0.3-0.9); MONOCYTES % 12.5 % (0.0-11.0); NEUTROPHIL # 1.9 10^3/ul (1.6-7.5); NEUTROPHILS % 54.4 % (39.0-77.0); PLATELET COUNT 126 10^3/UL (140-440); RED BLOOD COUNT 4.13 10^6/ul (4.20-5.40); RED CELL DISTRIBUTION WIDTH 12.1 % (11.5-14.5); UNCORRECTED WBC 3.5 10^3/ul (4.8-10.8); WHITE BLOOD COUNT 3.5 10^3/ul (4.8-10.8)
[2016-11-21 05:52] LABS: CONDITION 1
[2016-11-21 05:55] LABS: INR 0.93; PROTIME 12.5 Sec (12.2-14.2)
[2016-11-21 06:11] LABS: POTASSIUM 3.8 mmol/L (3.5-5.1)
[2016-11-21 06:13] LABS: CREATININE 0.81 mg/dl (0.44-1.00)
[2016-11-21 06:14] LABS: CALCIUM 9.3 mg/dl (8.4-10.2)
[2016-11-21] MEDS: TRIAMTERENE/HCTZ (37.5/25) TAB PO SCH (10:20)
[2016-11-21] MEDS: PREGABALIN 25 MG CAP PO SCH ×2 (10:20→13:16)
[2016-11-21] MEDS: ESTRADIOL 1 MG TAB PO SCH (10:20)
[2016-11-21] MEDS: LEVETIRACETAM 750 MG TAB PO SCH ×2 (10:21→22:30)
[2016-11-21] MEDS: FLUOXETINE 20 MG CAP PO SCH ×2 (10:21→22:30)
[2016-11-21] MEDS: BACLOFEN 10 MG TAB PO SCH ×3 (10:21→17:17)
[2016-11-21] MEDS: ASPIRIN (EC) 81 MG TAB PO SCH (10:22)
[2016-11-21] MEDS: METOPROLOL (XL) 50 MG TAB PO SCH (10:22)
[2016-11-21] MEDS: BUPROPION (SR) 150 MG TAB PO SCH ×2 (10:22→22:29)
--- NOTE | 2016-11-21 12:40 | CONS ---
Date/Time of Note Date/Time of Note DATE: 11/21/16 TIME: 12:39 Assessment/Plan Assessment/Plan Additional Assessment/Plan Additional Assessment/Plan IMPRESSION: 1. Chronic abdominal pain.better. 2. Depression. 3. Fibromyalgia. 4. Hypertension. 5. Emphysema. 6. Chronic pain syndrome. 7. TIA,on aspirin,MRI negative 8. Seizure disorder,on Keppra Plan had colonoscopy 4 years ago negative had also surgery for adhesion Consultation Date/Type/Reason Admit Date/Time Nov 18, 2016 at 12:29 24 HR Interval Summary Constitutional: no complaints Exam/Review of Systems Vital Signs Vitals Vital Signs Date Time Temp Pulse Resp B/P Pulse Ox O2 Delivery O2 Flow Rate FiO2 11/21/16 12:20 67 11/21/16 11:15 98.2 17 118/78 98 11/20/16 20:12 Nasal Cannula 2.0 Intake and Output 11/20/16 11/20/16 11/21/16 15:00 23:00 07:00 Intake Total 950 ml Balance 950 ml Exam Constitutional: alert, oriented, well developed Psych: nl mood/affect, no complaints Head: atraumatic, normocephalic Eyes: EOMI, PERRL, nl conjunctiva, nl lids, nl sclera ENMT: nl external ears & nose, nl lips & teeth, nl nasal mucosa & septum Neck: non-tender, supple Respiratory: clear to auscultation, normal air movement Cardiovascular: nl pulses, regular rate and rhythm Gastrointestinal: nl liver, spleen, non-tender, soft Musculoskeletal: nl extremities to inspection, nl gait and stance Extremities: normal pulses Neurological: CIRCULAR DISTRIBUTOR II-XII intact, nl mental status, nl speech, nl strength Skin: nl turgor, No rash or lesions Lymph: nl lymph nodes Results Result Diagram: 11/21/16 0510 11/21/16 0510 Results 24 hrs Laboratory Tests Test 11/21/16 05:10 Anion Gap 14 Basophils # 0.0 Basophils % 1.3 Blood Urea Nitrogen 26 H Calcium Level 9.3 Carbon Dioxide Level 35 H Chloride Level 100 Creatinine 0.81 Eosinophils # 0.1 Eosinophils % 2.6 Glucose Level 90 Hematocrit 40.1 Hemoglobin 13.8 INR International Normalized Ratio 0.93 Lymphocytes # 1.0 Lymphocytes % 29.2 Mean Corpuscular Hemoglobin 33.4 H Mean Corpuscular Hemoglobin Concent 34.4 Mean Corpuscular Volume 97.1 Mean Platelet Volume 8.2 Monocytes # 0.4 Monocytes % 12.5 H Neutrophils # 1.9 Neutrophils % 54.4 Nucleated Red Blood Cells # 0.0 Nucleated Red Blood Cells % 0.0 Platelet Count 126 L Potassium Level 3.8 Prothrombin Time 12.5 Prothrombin Time Ratio 1.0 Red Blood Count 4.13 L Red Cell Distribution Width 12.1 Sodium Level 145 H White Blood Count 3.5 L Medications Medications Current Medications Aspirin (Halfprin) 81 mg DAILY PO Last administered on 11/21/16 10:22; Admin Dose 81 MG; Start 11/17/16 at 09:00 Bupropion HCl (Wellbutrin Sr) 150 mg BID PO Last administered on 11/21/16 10: 22; Admin Dose 150 MG; Start 11/17/16 at 02:57 Cephalexin (Keflex) 500 mg Q6 PO Last administered on 11/21/16 05:31; Admin Dose 500 MG; Start 11/17/16 at 00:00 Fluoxetine HCl (Prozac) 20 mg BID PO Last administered on 11/21/16 10:21; Admin Dose 20 MG; Start 11/17/16 at 02:57 Levalbuterol (Xopenex Hfa) 1 puff QID PRN INH WHEEZING AND SOB; Start 11/16/16 at 22:00 Metoprolol Succinate (Toprol Xl) 50 mg DAILY PO Last administered on 11/21/16 10:22; Admin Dose 50 MG; Start 11/17/16 at 09:00 Pregabalin (Lyrica) 25 mg TID PO Last administered on 11/21/16 10:20; Admin Dose 25 MG; Start 11/17/16 at 02:56 Trazodone HCl (Desyrel) 150 mg QHS PO Last administered on 11/20/16 21:15; Admin Dose 150 MG; Start 11/17/16 at 02:56 Triamterene/HCTZ (Maxzide-25) 1 tab DAILY PO Last administered on 11/21/16 10: 20; Admin Dose 1 TAB; Start 11/17/16 at 09:00 Acetaminophen (Tylenol Tab) 650 mg Q4H PRN PO PAIN AND OR ELEVATED TEMP; Start 11/16/16 at 22:30 Hydralazine HCl (Apresoline) 10 mg Q4H PRN IV FOR SYSTOLIC B/P ABOVE 160; Start 11/16/16 at 22:30 Lorazepam (Ativan) 0.5 mg Q6H PRN IV AGITATION; Start 11/16/16 at 22:30 Baclofen (Lioresal) 40 mg QID PO Last administered on 11/21/16 10:21; Admin Dose 40 MG; Start 11/17/16 at 02:57 Nicotine (Nicoderm 21 Mg/ 24hr) 1 patch DAILY TRANSDERM Last administered on 09:48; Admin Dose 1 PATCH; Start 11/18/16 at 09:00 Tramadol HCl (Ultram) 50 mg Q6H PRN PO PAIN Last administered on 11/19/16 14: 03; Admin Dose 50 MG; Start 11/17/16 at 20:30 Fentanyl (Duragesic 100 Mcg/Hr Patch) 1 patch Q3D TRANSDERM Last administered on 11/21/16 01:26; Admin Dose 1 PATCH; Start 11/18/16 at 00:00 Levetiracetam (Keppra) 750 mg BID PO Last administered on 11/21/16 10:21; Admin Dose 750 MG; Start 11/18/16 at 21:00 Atorvastatin Calcium (Lipitor) 20 mg HS PO Last administered on 11/20/16 21:15 ; Admin Dose 20 MG; Start 11/18/16 at 21:00 Estradiol (Estrace) 1 mg DAILY PO Last administered on 11/21/16 10:20; Admin Dose 1 MG; Start 11/19/16 at 09:00 THIAGO ALMEIDA MD Nov 21, 2016 12:39
[2016-11-21] MEDS: NICOTINE (21 MG/24 HR) PATCH TRANSDERM SCH (13:00)
--- NOTE | 2016-11-21 21:43 | PDOCDIS ---
Discharge Instructions DIAGNOSIS Discharge Diagnosis: chronic pain syndrome CONDITION Patient Condition: Guarded HOME CARE INSTRUCTIONS: Diet Instructions: Regular ACTIVITY: Activity Restrictions: Slowly Increase Activity FOLLOW UP/APPOINTMENTS Appointments come to my office in 1 week REFERRALS Other Referrals contact her pain management POLLO Murray MD Nov 21, 2016 21:43
[2016-11-21] MEDS ORDERED: DUR100 TRANSDERM (22:02)
[2016-11-21] MEDS ORDERED: BACL10TA PO (22:02)
[2016-11-21] MEDS: ATORVASTATIN 20 MG TAB PO SCH (22:30)
[2016-11-21] MEDS: traZODone 50 MG TAB PO SCH (22:30)
--- NOTE | 2016-11-21 22:57 | PN ---
Date/Time of Note Date/Time of Note DATE: 11/21/16 TIME: 22:53 Assessment/Plan VTE Prophylaxis VTE Prophylaxis Intervention: SCD's Lines/Catheters IV [facility] Urinary Cath still in place: No Assessment/Plan Chief Complaint/Hosp Course ASSESSMENT AND PLAN: 1. Possible transient ischemic attack, Dr. Merritt is following in neurology consult. MRI of the brain is neg for stroke. Continue aspirin. 2. Possible seizure with patient with history of seizure. Continue Keppra, increased rate. 3. Chronic pain syndrome. The patient stated that current regimen is not sufficient. The patient previously was on pain medication pump which currently is not working, functioning. Dr. Pennington is asked to see patient in pain management. 4. Tobacco dependence. Continue nicotine patch. 5. Hypertension. Continue metoprolol. 6. The patient is continued on Keflex. The patient was receiving for tooth infection. OK to transfer to med-surg. Further recommendations based on clinical course. Plan of care discussed with Dr. Rodriguez. Problems: Subjective 24 Hr Interval Summary Free Text/Dictation SR on tele, pt denies any chest pain, no neuro deficit noted. Exam/Review of Systems Vital Signs Vitals Vital Signs Date Time Temp Pulse Resp B/P Pulse Ox O2 Delivery O2 Flow Rate FiO2 11/21/16 19:46 98.0 74 12 141/85 98 11/20/16 20:12 Nasal Cannula 2.0 Intake and Output 11/20/16 11/20/16 11/21/16 15:00 23:00 07:00 Intake Total 950 ml Balance 950 ml Exam GENERAL: Well-developed, well-nourished female in no acute distress. HEENT: Head is atraumatic, normocephalic. PERRLA. NECK: Supple. No cervical lymphadenopathy, no thyromegaly. LUNGS: Clear bilaterally. No rhonchi, wheezes noted. HEART: Normal S1, S2. No murmurs, gallops, clicks, rubs noted. The patient is sinus rhythm on telemetry. ABDOMEN: Round, soft, nondistended, nontender. Bowel sounds present. EXTREMITIES: There is no edema, clubbing, cyanosis. Pulses equal bilaterally 2 +. SKIN: There is no rash, petechiae noted. NEUROLOGIC: The patient is alert and oriented x4, moves all extremities. No neurologic deficits noted. Results Result Diagram: 11/21/16 0510 11/21/16 0510 Results 24 hrs Laboratory Tests Test 11/21/16 05:10 Anion Gap 14 Basophils # 0.0 Basophils % 1.3 Blood Urea Nitrogen 26 H Calcium Level 9.3 Carbon Dioxide Level 35 H Chloride Level 100 Creatinine 0.81 Eosinophils # 0.1 Eosinophils % 2.6 Glucose Level 90 Hematocrit 40.1 Hemoglobin 13.8 INR International Normalized Ratio 0.93 Lymphocytes # 1.0 Lymphocytes % 29.2 Mean Corpuscular Hemoglobin 33.4 H Mean Corpuscular Hemoglobin Concent 34.4 Mean Corpuscular Volume 97.1 Mean Platelet Volume 8.2 Monocytes # 0.4 Monocytes % 12.5 H Neutrophils # 1.9 Neutrophils % 54.4 Nucleated Red Blood Cells # 0.0 Nucleated Red Blood Cells % 0.0 Platelet Count 126 L Potassium Level 3.8 Prothrombin Time 12.5 Prothrombin Time Ratio 1.0 Red Blood Count 4.13 L Red Cell Distribution Width 12.1 Sodium Level 145 H White Blood Count 3.5 L Medications Medications Current Medications Aspirin (Halfprin) 81 mg DAILY PO Last administered on 11/21/16 10:22; Admin Dose 81 MG; Start 11/17/16 at 09:00 Bupropion HCl (Wellbutrin Sr) 150 mg BID PO Last administered on 11/21/16 22: 29; Admin Dose 150 MG; Start 11/17/16 at 02:57 Cephalexin (Keflex) 500 mg Q6 PO Last administered on 11/21/16 17:16; Admin Dose 500 MG; Start 11/17/16 at 00:00 Fluoxetine HCl (Prozac) 20 mg BID PO Last administered on 11/21/16 22:30; Admin Dose 20 MG; Start 11/17/16 at 02:57 Levalbuterol (Xopenex Hfa) 1 puff QID PRN INH WHEEZING AND SOB; Start 11/16/16 at 22:00 Metoprolol Succinate (Toprol Xl) 50 mg DAILY PO Last administered on 11/21/16 10:22; Admin Dose 50 MG; Start 11/17/16 at 09:00 Pregabalin (Lyrica) 25 mg TID PO Last administered on 11/21/16 13:16; Admin Dose 25 MG; Start 11/17/16 at 02:56 Trazodone HCl (Desyrel) 150 mg QHS PO Last administered on 11/21/16 22:30; Admin Dose 150 MG; Start 11/17/16 at 02:56 Triamterene/HCTZ (Maxzide-25) 1 tab DAILY PO Last administered on 11/21/16 10: 20; Admin Dose 1 TAB; Start 11/17/16 at 09:00 Acetaminophen (Tylenol Tab) 650 mg Q4H PRN PO PAIN AND OR ELEVATED TEMP; Start 11/16/16 at 22:30 Hydralazine HCl (Apresoline) 10 mg Q4H PRN IV FOR SYSTOLIC B/P ABOVE 160; Start 11/16/16 at 22:30 Lorazepam (Ativan) 0.5 mg Q6H PRN IV AGITATION; Start 11/16/16 at 22:30 Baclofen (Lioresal) 40 mg QID PO Last administered on 11/21/16 17:17; Admin Dose 40 MG; Start 11/17/16 at 02:57 Nicotine (Nicoderm 21 Mg/ 24hr) 1 patch DAILY TRANSDERM Last administered on 13:00; Admin Dose 1 PATCH; Start 11/18/16 at 09:00 Tramadol HCl (Ultram) 50 mg Q6H PRN PO PAIN Last administered on 11/19/16 14: 03; Admin Dose 50 MG; Start 11/17/16 at 20:30 Fentanyl (Duragesic 100 Mcg/Hr Patch) 1 patch Q3D TRANSDERM Last administered on 11/21/16 01:26; Admin Dose 1 PATCH; Start 11/18/16 at 00:00 Levetiracetam (Keppra) 750 mg BID PO Last administered on 11/21/16 22:30; Admin Dose 750 MG; Start 11/18/16 at 21:00 Atorvastatin Calcium (Lipitor) 20 mg HS PO Last administered on 11/21/16 22:30 ; Admin Dose 20 MG; Start 11/18/16 at 21:00 Estradiol (Estrace) 1 mg DAILY PO Last administered on 11/21/16 10:20; Admin Dose 1 MG; Start 11/19/16 at 09:00 SANDEEP FORD Nov 21, 2016 22:57
[2016-11-22] MEDS: BACLOFEN 10 MG TAB PO SCH ×2 (00:35→08:29)
[2016-11-22] MEDS: PREGABALIN 25 MG CAP PO SCH ×2 (00:36→08:29)
[2016-11-22] MEDS: CEPHALEXIN 500 MG CAP PO SCH ×2 (00:38→06:11)
[2016-11-22 07:18] VITALS: BP 115/71; RESP 20
[2016-11-22] MEDS: METOPROLOL (XL) 50 MG TAB PO SCH (08:17)
[2016-11-22] MEDS: NICOTINE (21 MG/24 HR) PATCH TRANSDERM SCH (08:28)
[2016-11-22] MEDS: ASPIRIN (EC) 81 MG TAB PO SCH (08:29)
[2016-11-22] MEDS: BUPROPION (SR) 150 MG TAB PO SCH (08:29)
[2016-11-22] MEDS: LEVETIRACETAM 750 MG TAB PO SCH (08:29)
[2016-11-22] MEDS: ESTRADIOL 1 MG TAB PO SCH (08:30)
[2016-11-22] MEDS: TRIAMTERENE/HCTZ (37.5/25) TAB PO SCH (08:30)
[2016-11-22] MEDS: FLUOXETINE 20 MG CAP PO SCH (08:30)
[2016-11-22 19:22] LABS: UFH SRA INTERPRETATION NEGATIVE (NEGATIVE)
--- NOTE | 2016-11-22 21:29 | DS ---
DATE OF ADMISSION: 11/18/2016 DATE OF DISCHARGE: 11/22/2016 PRINCIPAL DIAGNOSES: Probably fentanyl withdrawal symptoms, opioid addiction, possible transient is chemic attack. SECONDARY DIAGNOSES: Chronic abdominal pain, depression, fibromyalgia, hypertension, emphysema, chr onic pain syndrome, syringomyelia of the cervical, thoracic, and lumbar spine. OPERATIONS AND PROCEDURES: The patient was seen in consultation by Dr. Coronel, player services representative, who felt that she had chronic abdominal pain and had a chronic pain syndrome. He felt that we shoul d give her pain management and he felt that if the pain was persistent that he might do a colonoscop y provided she had not had a colonoscopy in the past. She had neurological consultation by Dr. Jennifer mariscal. He felt that her symptoms might have reflected a transient ischemic attack, or at least theoretically may be related to partial seizures. He thought that her Keppra should be increased 75 0 mg twice daily. An EEG was performed, which revealed an abnormal study secondary to presence of f rontal intermittent rhythmical delta activity, which is usually seen in the context of toxic metabol ic encephalopathy. No definite epileptiform transients were seen. CAT scan of brain was unremarkab le. Ultrasound of the carotid arteries revealed less than 50% stenosis bilaterally in the internal carotid arteries. Normal antegrade flow in the vertebral arteries bilaterally. MRI of the brain re vealed no evidence of acute intracranial pathology. There were multiple foci of increase T2 weighte d FLAIR signal intensity seen in the periventricular and deep white matter, nonspecific in appearanc e, though perhaps reflective of hypertensive microvascular ischemic disease, complicated migraine, o r sequelae from prior traumatic inflammatory insults. The brain was otherwise normal in appearance. Nasal culture revealed no methicillin-resistant staphylococci. X-ray of the chest revealed emphys ematous changes of the lungs and aortic atherosclerosis. COMPLICATIONS: None. POST-HOSPITAL INSTRUCTIONS: The patient was given fentanyl patches of 100 mcg per hour every 48 bethany rs and she was told contacted her pain management physician immediately upon discharge. She needs a new fentanyl pump because her old one broke and that was the cause of her fentanyl withdrawal. CONDITION ON DISCHARGE: Guarded. Dictated By: POLLO TONG/CHEYENNE Conf#: [id number] DID#: [id number]
== END 2016-11-22 13:50 | disposition home health service (06) | DRG 69 ==
LOC: E/R 11:27 → TEL 18:03 → OBSVTOIN 11-18 12:29 → MS2 11-21 19:25
PROVIDERS: ADMIT Internal Medicine; ATTEND Internal Medicine
DX: G45.9 Transient cerebral ischemic attack, unspecified (principal); G95.0 Syringomyelia and syringobulbia; F11.23 Opioid dependence with withdrawal; J44.9 Chronic obstructive pulmonary disease, unspecified; I10 Essential (primary) hypertension; G40.909 Epilepsy, unspecified, not intractable, without status epilepticus; F17.200 Nicotine dependence, unspecified, uncomplicated; Z88.0 Allergy status to penicillin; Z91.09 Other allergy status, other than to drugs and biological substances; Z91.040 Latex allergy status; G89.4 Chronic pain syndrome; M79.7 Fibromyalgia
CPT/HCPCS: 70450; 70551; 71010; 80048; 80053; 80061; 81003; 82088; 82382; 82530; 82533; 83497; 83835; 84260; 84443; 84484; 84585; 85025; 85610; 85730; 87081; 93005; 93880; 95819; 96374; 96375; 97165; 99217; G0378; J1170; J2270; J2405; J7030